=== PATIENT | male | born 1960 | race Caucasian/White ===

== ENCOUNTER 2021-06-23 20:41 | Inpatient (IN) | payer OTHER, SELFPAY ==
[2021-06-23 20:50] VITALS: BP 128/82; PULSE 65; RESP 18; TEMP 36.6; O2SAT 95; BMI 39.6
[2021-06-24 04:57] LABS: Hematocrit 43.3 % (40-54); Hemoglobin 13.9 g/dL (13.0-16.5); Mean Corp Hgb Conc 32.1 g/dL (32-36); Mean Corpuscular Hgb 28.8 pg (27.0-32.0); Mean Corpuscular Volume 89.8 fL (80-94); Mean Platelet Vol. 10.5 fl (6.2-12.0); POSITIVE COUNT YES; Platelet Count 160 K/mm3 (150-450); RBC Distribution Width SD 45.1 fl (35.1-43.9); Red Blood Count 4.82 M/mm3 (4.6-6.2); White Blood Count 55.6 K/mm3 (4.4-11.0)
[2021-06-24] MEDS: Levothyroxine 100 MCG Tablet PO (04:59)
[2021-06-24 05:08] LABS: Scan Indicated on CBC? Y/N YES- FLAGS NOTED
[2021-06-24 05:28] LABS: ALB/GLOB Ratio 0.9 RATIO (0.9-2.4); AST(SGOT) 25 U/L (15-37); Alanine Aminotransfer ALT/SGPT 59 U/L (16-61); Albumin, Serum 3.3 g/dL (3.2-5.0); Alkaline Phosphatase 82 U/L (45-117); Anion Gap 6 (5-15); BUN 16 mg/dL (7-18); BUN/Creat Ratio 13.4 RATIO (10-20); Calcium,Total 8.8 mg/dL (8.5-10.1); Chloride 105 mmol/L (98-107); Creatinine, Serum 1.19 mg/dL (0.70-1.30); EST Glomerular Filtration Rate 66 mL/min (>60); Est Glom Filt Rate - Afr Amer 80 mL/min (>60); Estimated Creatinine Clearance 69.01 ml/min; Globulin 3.5 g/dL (2.2-4.2); Glucose 103 mg/dL (74-106); Magnesium 2.4 mg/dL (1.6-2.6); Potassium 4.5 mmol/L (3.5-5.1); Protein, Total 6.8 g/dL (6.4-8.2); Sodium Level 139 mmol/L (136-145)
[2021-06-24 06:00] LABS: Phosphorus 4.6 mg/dL (2.5-4.9)
[2021-06-24 07:10] LABS: Differential Comment SCANNED
[2021-06-24 07:17] VITALS: BP 125/83; PULSE 66; RESP 20; TEMP 36.2; O2SAT 97
[2021-06-24] MEDS: amLODIPine 5 MG Tablet PO (08:31)
[2021-06-24] MEDS: Allopurinol 300 MG Tablet PO (08:31)
[2021-06-24] MEDS: Carvedilol 12.5 MG Tablet PO ×2 (08:31→21:46)
[2021-06-24] MEDS: Pantoprazole Sodium 20 MG Tablet PO (08:31)
[2021-06-24] MEDS: Furosemide 20 MG Tablet PO ×2 (08:31→21:46)
[2021-06-24] MEDS: Potassium Chloride Oral Tablet 10 MEQ PO ×2 (08:31→21:46)
[2021-06-24] MEDS: Spironolactone 25 MG Tablet 12.5 MG PO (08:32)
--- NOTE | 2021-06-24 12:19 | HP.PCM_ITS ---
HPI - General General Date of Admission: 06/23/21 HPI Narrative GEETA ORTIZ, is a 61 YO M with a PMH of morbid obesity, CLL, MELY (had surgery to correct), GERD, HTN, HLD, low HDL at 30, hypothyroidism, glucose intolerance, chronic back pain, tobacco dependence (used to smoke cigarettes and now uses snuff), elevated left ventricular end-diastolic pressure, and CAD who presented to an OSH ED on 06/20/21 with a hx of Left side weakness and slurred speech that started on 06/18/21. CTH showed no acute abnormalities. He was transferred to [facility] for additional W/U. NIHSS at arrival to [facility] was 4 for Left side weakness and dysarthia. CTA of the head and neck showed no large vessel occlusion, stenosis or aneurysm. MRI at [facility] showed an acute ischemic CVA in the R ester. He was not a candidate for intervention because he was outside the window. He was seen by PT/OT/ST and transfer to an acute rehab unit was recommended at discharge. Significant lab included a HGBA1C of 6.1, LDL of 52 and HDL of 20. WBC is > 50,000 but he has known CLL. One of the consults done at [facility] states he has a hx of AF years ago. Not on anticoagulation. Not known if this is a current diagnosis. Transthoracic echocardiogram at [facility] showed a 60 to 65% ejection fraction with no wall motion abnormalities, normal diastolic function and no PFO. There was no significant valvular dysfunction. While at [facility] he developed L hand pain and Xrays showed a FB. This likely has been there for years and I am skeptical that this is the cause of the pain. [facility]LY [facility] Medical History Broken back CAD (coronary artery disease) Chronic back pain greater than 3 months duration Chronic lymphocytic leukemia GERD (gastroesophageal reflux disease) HTN (hypertension) Hyperlipemia Hypothyroidism Sleep apnea Tobacco dependence due to chewing tobacco Vertebral compression fracture Home Medications albuterol sulfate [ProAir HFA] 108 mcg INHALATION Q4H PRN PRN 06/23/21 [History Last Taken Unknown] allopurinol 300 mg PO DAILY 06/23/21 [History Last Taken Unknown] amlodipine 5 mg PO DAILY 06/23/21 [History Last Taken Unknown] aspirin 81 mg PO DAILY 06/23/21 [History Last Taken Unknown] atorvastatin 40 mg PO QHS 06/23/21 [History Last Taken Unknown] carvedilol 12.5 mg PO BID 06/23/21 [History Last Taken Unknown] furosemide 20 mg PO BID 06/23/21 [History Last Taken Unknown] levothyroxine 100 mcg PO DAILY 06/23/21 [History Last Taken Unknown] naproxen sodium 375 mg PO/SL BID 06/23/21 [History Last Taken Unknown] nitroglycerin 0.4 mg SUBLINGUAL PRN PRN 06/23/21 [History Last Taken Unknown] omeprazole 20 mg PO DAILY 06/23/21 [History Last Taken Unknown] potassium chloride [Klor-Con M20] 10 meq PO BID 06/23/21 [History Last Taken Unknown] spironolactone 12.5 mg PO DAILY 06/23/21 [History Last Taken Unknown] Allergy/AdvReac Type Severity Reaction Status Date / Time No Known Allergies Allergy Verified 06/23/21 22:36 Family History Father CAD (coronary artery disease) Diabetes Hypertension Cancer Bone cancer? Son SLE (systemic lupus erythematosus) Family History no significant family his Surgical History H/O left knee surgery History of carpal tunnel release History of tonsillectomy and adenoidectomy Social History number of children: 3 Smoking Status: Former smoker alcohol intake: current details: 2 beers a week ROS Constitutional Constitutional: Reports malaise; Denies anorexia, change in weight, chills, fatigue, fever(s), night sweats or weakness Eyes Eyes: Denies blurry vision, change in vision, eye pain or loss of vision ENT HEENT: Reports dysphagia; Denies abnormal hearing, headache(s), hearing loss, nasal congestion or sore throat Cardiovascular Cardiovascular: Denies chest pain, dyspnea on exertion, edema, lightheadedness, orthopnea, palpitations, paroxysmal nocturnal dyspnea or syncope Respiratory/Chest Respiratory/Chest: Denies cough, dyspnea, shortness of breath at rest, shortness of breath with exertion or wheezing Gastrointestinal Gastrointestinal: Denies abdominal pain, constipation, diarrhea, dyspepsia, hematemesis, hematochezia, nausea or vomiting Genitourinary Genitourinary: Denies dysuria, hematuria, nocturia, urinary frequency, urinary hesitancy, urinary incontinence or urinary urgency Musculoskeletal Musculoskeletal: Reports back pain and stiffness; Denies joint pain, joint sw elling or neck pain Integumentary Integumentary: Denies jaundice, pruritus, rash or wounds Neurologic Neurologic: Reports focal weakness, lack of coordination and weakness; Denies confusion, disequilibrium, dizziness, headache(s), paresthesias, seizures or tremor(s) Psychiatric Psychiatric: Reports other Details: He is chronically tired and he attributes this to the CLL but, he is working 7 days a week, often 12 hours a day. He has CLL for the past 2 years and his has been dealing with cervical cancer, breast CA, surgery, chemo and radiation for the past year. He is affect is very flat. When he was at [facility] he thought he was going to from the stroke and he was okay with that. Denies homicidal or suicidal ideation. Speech is more of a monotone. Admits to not sleeping well. His told him recently he was irritable. ; Denies anxiety, depression, homicidal ideation or suicidal id eation Endocrine Endocrinology: Denies change in body appearance, polydipsia or polyuria Hematologic/Lymphatic Hematologic/Lymphatic: Denies easy bleeding, easy bruising or lymphadenopathy Allergic/Immunologic Allergic/Immunologic: Denies rhinitis, eczemia or asthma Vital Signs Vital Signs Vital Signs: 06/23/21 20:50 06/24/21 07:17 Temperature 98 F 97.2 F L Temperature Source Temporal Temporal Pulse Rate 65 66 Respiratory Rate 18 20 H Blood Pressure 128/82 H 125/83 H Blood Pressure Mean 97 97 Blood Pressure Source Monitor Monitor Blood Pressure Position Semi-Fowlers Sitting Blood Pressure Location Right Arm Left Arm Pulse Ox 95 97 Oxygen Delivery Method Room Air Room Air Weight Weight: 276 lb 0.3 oz Body Mass Index (BMI) 39.6 Indicators for Scoring Admitted with or Primary Diagnosis of CVA/Stroke: Yes Hx of CVA/Stroke: Yes (June 2021) Modified Chester Score MRS Score at time of Evaluation: 4-Moderate/severe disability NIHSS NIHSS 1a. Level of Consciousness: Alert; keenly responsive 1b. LOC Questions: Answers BOTH questions correctly. 1c. LOC Commands: Performs both tasks correctly. 2. Best Gaze: Normal 3. Visual: No visual loss 4. Facial Palsy: Normal symmetrical movements 5a. Left Arm: Drift; arm drifts downward but doesn?t hit the bed 5b. Right Arm: No drift; arm holds 90 (or 45) degrees for full 10 seconds 6a. Left Leg: Drift; leg falls by the end of 5-seconds, but does not hit bed 6b. Right Leg: No drift; leg holds 30-degree position for full 5 seconds 7. Limb Ataxia: Absent 8. Sensory: Normal; no sensory loss 9. Best Language: No aphasia; normal 10. Dysarthria: [id number] dysarthria; 11. Extinction and Inattention: No abnormality Total: 3 Stroke Questions Stroke Team Activated: No (Pt admitted [facility] rehab from [facility] after completed stroke.) Physical Exam Const alert and oriented x3 Constitutional Narrative: He has to stand up periodically to relieve his back pain. General Appearance: cooperative, well kempt and well developed Eyes PERRL, EOMs intact bilaterally, conjunctivae normal and no scleral icterus General Eye: normal appearance of both eyes Neck no carotid bruits Neck Narrative: The neck is short and thick General: trachea midline Chest Chest: symmetrical chest wall rise Resp normal respiratory effort, normal air movement and clear to auscultation bi laterally Effort and Inspection: able to speak in complete sentences Cardio regular rate, regular rhythm, S1 normal heart sound, S2 normal heart sound, no murmurs, no rub and no gallops GI normal to inspection, nondistended, normoactive bowel sounds, soft to palpation and non-tender Extremity no calf tenderness and no pedal edema Skin General Skin Exam: no breakdown Rashes: no rashes Neuro Neuro Narrative: See the NIHSS Psych mental status grossly normal, thought process normal, activity/motor behavior normal, denies homicidal ideation and denies suicidal ideation Psych Narrative: flat affect Appearance: appropriate and well kempt Attitude: calm Activity / Motor Behavior: appropriate eye contact Results Lab / Micro Data Result Diagrams: 06/24/21 04:50 06/24/21 04:50 Labs: Laboratory Results - last 24 hr 06/24/21 04:50: WBC 55.6 H*, RBC 4.82, Hgb 13.9, Hct 43.3, MCV 89.8, MCH 28.8, MCHC 32.1, RDW Std Deviation 45.1 H, RDW Coeff of Romi 14.0, Plt Count 160, MPV 10.5, Differential Comment SCANNED, Diff Path Review January06/24/21 04:50: Sodium 139, Potassium 4.5, Chloride 105, Carbon Dioxide 28.0, Anion Gap 6, BUN 16, Creatinine 1.19, Estim Creat Clear Calc 69.01, Est GFR (MDRD) Af Amer 80, Est GFR (MDRD) Non-Af 66, BUN/Creatinine Ratio 13.4, Glucose 103, Calcium 8.8, Magnesium 2.4, Total Bilirubin 0.90, AST 25, ALT 59, Alkaline Phosphatase 82, Total Protein 6.8, Albumin 3.3, Globulin 3.5, Albumin/Globulin Ratio 0.9 06/24/21 04:50: Phosphorus 4.6 Assessment & Plan Assessment/Plan (1) Physical debility: (2) Ischemic cerebrovascular accident (CVA): (3) Left-sided weakness: (4) Dysarthria: (5) Chronic lymphocytic leukemia: (6) Depression: QUALIFIERS: Active/Remission status: currently active (7) Glucose intolerance (impaired glucose tolerance): (8) Low HDL (under 40): (9) Chronic back pain greater than 3 months duration: (10) Tobacco dependence due to chewing tobacco: (11) Morbid (severe) obesity due to excess calories: (12) Sleep apnea: QUALIFIERS: Sleep apnea type: obstructive Qualified Code(s): G47.33 - Obstructive sleep apnea (adult) (pediatric) (13) Hypothyroidism: QUALIFIERS: Hypothyroidism type: unspecified Qualified Code(s): E03.9 - Hypothyroidism, unspecified (14) Hyperlipemia: QUALIFIERS: Hyperlipidemia type: unspecified Qualified Code(s): E78.5 - Hyperlipidemia, unspecified (15) HTN (hypertension): QUALIFIERS: Hypertension type: primary hypertension Qualified Code(s): I10 - Essential (primary) hypertension (16) CAD (coronary artery disease): PLAN: PLAN PT for gait stability OT for ADL's ST for evaluation Analgesics as needed Bowel protocol Fall precautions Assess for Anxiety/Depression GI prophylaxis with pantoprazole DVT prophylaxis with Lovenox Follow up with neurology, oncology, PCP following DC from IP Rehab Cymbalta 30 mg PO daily in the AM Arthritis compounded cream to the painful areas in the low back TID Charges/Coding Visit Charges Inpatient E&M: 27303 Init Hosp L3
--- NOTE | 2021-06-24 12:26 | REHABEVAL_ITS ---
Admission Information Primary Diagnosis:: Debility secondary to recent ischemic CVA in the ester. Status Changes from Prescreening?: No changes Identified Actual Problem List:: Pain, ALteration in Cmfrt, Depression, Alteration in Sleep, Mobility Impaired, Self Care Deficit, Know.Dfct/Disease Process, BP, Hypertension and Alteration-Leisure Activ. Potential Problem List:: DVT, Bleeding, Infection, UTI, Aspiration, Falls, Skin Integrity and Depression Risk of Complications DVT: LMWH and KAYLEE Hose Bleeding: Monitor Lab Values, Nursing to Teach Precautions for anti-coagulation therapy., Wound, if applicable, to be assessed every shift. and Stroke patients assessed for lethargy or change in status. Infection: Clinical Staff to Monitor for S/S of infection: and S/S of infection include fever, redness, warmth, etc. Urinary Tract Infection: Monitor for frequency, burning, discomfort, or incontinence. and Nursing will obtain urine sample for urinalysis and C&S when ordered. Aspiration: Clinical staff will monitor for coughing, drooling, congestion., Speech will evaluate swallowing and dsyphasia. and Nursing will monitor patient swallowing during meals. Falls: Patient will be evaluated for Fall Precautions and Patient will be placed on Fall Precautions as indicated per protocol. Skin Breakdown: Nursing will assess skin daily using assessment tool. and Nursing will place on Skin Breakdown Precautions as indicated. Pain: Clinical staff will assess patient's pain level per protocol., Medications will be given, if needed, and the pain level reassessed. and Other methods: Massage, distraction, decrease stimulus, etc. used PRN. Plan of Care Patient requires physician specializing in physical medicine and rehab oversight to provide close medical supervision of rehab issues including: Pain Management, Sleep Problems, Bowel and Bladder, Medical and co-morbidity Management, DVT prophylaxis, Rehabilitation Leadership and Coordination of treatment team Patient needs Physical Therapy: For a minimum of 1 hour and At least 5 out of 7 days Patient needs Physical Therapy to improve:: Mobility, Strengthening, Transfers, Stretching, ROM, Endurance, Stairs, Gait and Balance Patient needs Occupational Therapy: For a minimum of 1 hour and At least 5 out of 7 days Patient needs Occupational Therapy to improve ADL's incl.: Eating, Grooming, Bathing, Dressing, Toileting, Toilet transfers, Community Reintegration, Higher functioning activities, Household tasks, Adaptive Equipment, Splinting and Other activities as determined Patient requires speech therapy: For a minimum of 1 hour and At least 5 out of 7 days Patient requires speech therapy for: Swallowing, Cognition, Language Skills and Compensatory Strategies Patient requires 24/7 Rehabilitation Nursing for: Pain Issues, Identifying and preventing risk factors, Monitoring and reporting current medical conditions, Assisting with ambulation, transfer, and all ADL's, Teaching patients about disease process and medications, Family teaching, Providing safe environment, Bowel and Bladder Issues, Skin integrity and Medication Management Patient needs Head Of Acquisitions/ Case Management for: Discharge Planning, Arranging Home Equipment or Services and Family Interventions Patient needs Dietary and Nutrition Services for: Adequate Nutrition, Nutritional Supplements and Nutritional Education Goals Patient will remain: free from falls and or injury at time of discharge. Patient will perform bed mobility at: MOD I level of assist. Patient will complete transfers from bed to chair at: MOD I level of assist. Patient will ambulate: with LRD and - (1,000 feet) Patient will complete upper body dressing at: MOD I level of assist. Patient will complete lower body dressing at: MOD I level of assist. Patient will complete toileting at: MOD I level of assist. Patient will perform bathing at: MOD I level of assist. Patient will complete grooming at: MOD I level of assist. Patient will complete home management skills at: MOD I level of assist. Patient will achieve: 12 stairs (25 steps with 1 handrail) and - (1 curb step) Patient will have pain level of: of 3 or less Patient's skin will: remain intact Patient will receive: adequate nutrition. Discharge Planning Pt Prognosis for Sig. Practical Improv. w/in Reasonable Time: Good Estimated Length of stay (days): 14 Anticipated D/C Destination: Home Was Preadmission Assessment Accurate?: Yes
[2021-06-24 13:51] VITALS: BMI 39.6
[2021-06-24 14:28] LABS: Pathologist Review Reviewed
--- NOTE | 2021-06-24 16:58 | CASEMGMT ---
Social Work Met with patient for initial assessment. Discussed code status. Confirmed full code. Explained MM[employer] insurance with [employer] 06/29 and continued stay is not guaranteed. 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 See 's H&P for further medical information complicating prognosis and rehab potential. Pt reports to not having as crisp speech, needed for his career, or activity tolerance. Discussed patient's mood, cancer dx, 's cancer dx, and chronic pain. Explained Palliative Care - pt agreed to referral. Referral made to [facility]. Will Team Monday. Will continue to follow for discharge planning and support. MIRIAM MagdalenoW
[2021-06-24 18:05] LABS: Bedside Glucose 116 mg/dL (70-110)
[2021-06-24 19:45] VITALS: BP 151/86; PULSE 71; RESP 20; TEMP 36.6; O2SAT 94
[2021-06-24] MEDS: Arthritis Pain Compound 60 CLICK TUBE TOPICAL (21:46)
[2021-06-24] MEDS: Atorvastatin Calcium 40 MG Tablet PO (21:46)
[2021-06-24] MEDS: Aspirin 81 MG TAB.CHEW PO (21:47)
[2021-06-25 03:56] VITALS: BMI 39.6
[2021-06-25] MEDS: Arthritis Pain Compound 60 CLICK TUBE TOPICAL ×2 (06:22→20:55)
[2021-06-25] MEDS: Enoxaparin 40 MG/0.4 ML Syringe SC (06:23)
[2021-06-25] MEDS: Levothyroxine 100 MCG Tablet PO (06:23)
[2021-06-25] MEDS: amLODIPine 5 MG Tablet PO (07:59)
[2021-06-25] MEDS: Allopurinol 300 MG Tablet PO (07:59)
[2021-06-25] MEDS: Spironolactone 25 MG Tablet 12.5 MG PO (07:59)
[2021-06-25] MEDS: Potassium Chloride Oral Tablet 10 MEQ PO ×2 (07:59→20:54)
[2021-06-25] MEDS: Furosemide 20 MG Tablet PO ×2 (07:59→20:54)
[2021-06-25] MEDS: Carvedilol 12.5 MG Tablet PO ×3 (07:59→20:55)
[2021-06-25] MEDS: DULoxetine Hcl 30 MG Capsule PO (07:59)
[2021-06-25] MEDS: Pantoprazole Sodium 20 MG Tablet PO (08:00)
[2021-06-25 08:05] VITALS: BP 158/77; PULSE 67; RESP 18; TEMP 36.6; O2SAT 95
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
--- NOTE | 2021-06-25 11:02 | PCM.PN.BLA ---
Progress Note Afebrile VSS-systolic blood pressure is mildly increased at 158/77 today. Last evening it was 151/86. Heart rate is within normal limits. Maintaining appropriate oxygen saturation on RA Oral intake is good Discussed with nursing - no problems that need addressed Reviewed the PT/OT/ST notes Medication list reviewed. He was started on Cymbalta this morning. Gennaro denies chest pain, shortness of breath, lightheadedness, vertigo, nausea, abdominal pain, dysuria. He does not feel he has good balance and he is c/o fatigue. Physical Exam Const alert, oriented x3 and no apparent distress General Appearance: cooperative HEENT normocephalic and head/scalp atraumatic Eyes EOMs intact bilaterally, conjunctivae normal and no scleral icterus Resp normal respiratory effort and clear to auscultation bilaterally Cardio regular rate, regular rhythm and no gallops GI normal to inspection, nondistended, normoactive bowel sounds, soft to palpation and non-tender Extremity no calf tenderness Skin General Skin Exam: no breakdown Rashes: no rashes Assessment & Plan Assessment/Plan (1) Left-sided weakness: (2) Ischemic cerebrovascular accident (CVA): (3) Physical debility: (4) Depression: QUALIFIERS: Active/Remission status: currently active (5) Chronic back pain greater than 3 months duration: (6) Chronic lymphocytic leukemia: PLAN: 1. Continue therapy 2. Continue the Cymbalta 3. If the BP is still > 140 tomorrow will adjust the antihypertensives 4. Will need to follow up with heme/onc after DC. The WBC count is only 55,000 so I do not think the CVA was due to hyperviscosity. He is not anemic and the PLT's are 160,000. Visit Charges Inpatient E&M: 64882 Subs Hosp L2
[2021-06-25 16:47] VITALS: BMI 39.6
--- NOTE | 2021-06-25 16:47 | NURSING ---
pts daughter aware of Team and visiting hours
[2021-06-25 19:56] VITALS: BP 140/90; PULSE 65; RESP 12; TEMP 36.6; O2SAT 94
[2021-06-25] MEDS: Atorvastatin Calcium 40 MG Tablet PO (20:54)
[2021-06-25] MEDS: Aspirin 81 MG TAB.CHEW PO (20:55)
[2021-06-25] MEDS: traZODone 100 MG Tablet PO (20:55)
[2021-06-26 02:29] VITALS: BP 114/75; PULSE 63; RESP 12; TEMP 36.5; O2SAT 93
[2021-06-26 02:36] LABS: Bedside Glucose 96 mg/dL (70-110)
[2021-06-26 05:00] VITALS: BMI 39.6
[2021-06-26] MEDS: Enoxaparin 40 MG/0.4 ML Syringe SC (05:27)
[2021-06-26] MEDS: Arthritis Pain Compound 60 CLICK TUBE TOPICAL ×3 (05:27→22:02)
[2021-06-26] MEDS: Levothyroxine 100 MCG Tablet PO (06:41)
[2021-06-26 07:41] VITALS: BP 120/66; PULSE 61; RESP 16; TEMP 36.7; O2SAT 93
[2021-06-26] MEDS: Allopurinol 300 MG Tablet PO (10:54)
[2021-06-26] MEDS: Furosemide 20 MG Tablet PO ×2 (10:54→22:00)
[2021-06-26] MEDS: Senna/Docusate Sodium 1 Tablet 2 TABLET PO (10:54)
[2021-06-26] MEDS: Carvedilol 12.5 MG Tablet PO ×2 (10:54→21:59)
[2021-06-26] MEDS: Potassium Chloride Oral Tablet 10 MEQ PO ×2 (10:54→22:01)
[2021-06-26] MEDS: Spironolactone 25 MG Tablet 12.5 MG PO (10:56)
[2021-06-26] MEDS: DULoxetine Hcl 30 MG Capsule PO (10:58)
[2021-06-26] MEDS: amLODIPine 5 MG Tablet PO (10:59)
[2021-06-26] MEDS: Pantoprazole Sodium 20 MG Tablet PO (10:59)
[2021-06-26 17:00] VITALS: BMI 39.6
[2021-06-26 21:39] VITALS: BP 143/87; PULSE 73; RESP 18; TEMP 36.5; O2SAT 94
[2021-06-26 21:48] VITALS: RESP 18
[2021-06-26] MEDS: Aspirin 81 MG TAB.CHEW PO (21:59)
[2021-06-26] MEDS: traZODone 100 MG Tablet PO (21:59)
[2021-06-26] MEDS: Atorvastatin Calcium 40 MG Tablet PO (22:00)
[2021-06-27 01:52] VITALS: BMI 39.6
[2021-06-27] MEDS: Levothyroxine 100 MCG Tablet PO (06:27)
[2021-06-27] MEDS: Enoxaparin 40 MG/0.4 ML Syringe SC (06:27)
[2021-06-27] MEDS: Arthritis Pain Compound 60 CLICK TUBE TOPICAL ×3 (06:28→21:03)
[2021-06-27 07:22] VITALS: BP 116/59; PULSE 62; RESP 18; TEMP 36.6; O2SAT 94
[2021-06-27] MEDS: DULoxetine Hcl 30 MG Capsule PO (11:10)
[2021-06-27] MEDS: Carvedilol 12.5 MG Tablet PO (11:10)
[2021-06-27] MEDS: Furosemide 20 MG Tablet PO ×2 (11:10→21:03)
[2021-06-27] MEDS: Pantoprazole Sodium 20 MG Tablet PO (11:10)
[2021-06-27] MEDS: Potassium Chloride Oral Tablet 10 MEQ PO ×2 (11:10→21:03)
[2021-06-27] MEDS: Allopurinol 300 MG Tablet PO (11:10)
[2021-06-27] MEDS: Spironolactone 25 MG Tablet 12.5 MG PO (11:10)
[2021-06-27] MEDS: amLODIPine 5 MG Tablet PO (11:23)
--- NOTE | 2021-06-27 13:39 | PN_ITS ---
Progress Note Afebrile VSS-blood pressure is 116/59 this morning. Heart rate is within normal limits. Maintaining appropriate oxygen saturation on RA Oral intake is adequate Discussed with nursing - no problems that need addressed Reviewed the PT/OT/ST notes Medication list reviewed. He tells me that he slept well last night and he was even able to take a nap in the recliner today. He also tells me that his back pain is somewhat better. He did over an hour on the Nustep last night..........he is constantly pushing himself to do more. His Opal was in the room and today and we had an hour long discussion about the sx of depression and how keeping yourself constantly busy is an escape so that you do not have to think about having CLL and how long you have to live. 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 He is chronically tired and blames it on the CLL but, I pointed out that I believe in part that is true BUT, he is also physiologically tired from ov erdoing. His has cancer also and I think she needs more support from him and she wants to be there for him but, he is rarely available. He is c/o night sweats Physical Exam Const alert, oriented x3 and no apparent distress Resp normal respiratory effort, normal air movement and clear to auscultation bi laterally Cardio regular rate, regular rhythm and no gallops GI normal to inspection, nondistended, normoactive bowel sounds, soft to palpation and non-tender Extremity no calf tenderness Assessment & Plan Assessment/Plan (1) Left-sided weakness: (2) Dysarthria: (3) Ischemic cerebrovascular accident (CVA): (4) Physical debility: (5) Depression: QUALIFIERS: Active/Remission status: currently active PLAN: 1. Add Tramadol 50 mg at HS and TID PRN to the current regimen. 2. Recommended he get counselling to help him learn to set boundaries and deal with the stress of having chronic illness 3. continue the Cymbalta 4. I spent 45 minutes with Gennaro and his today. the majority of the time today was spent counselling. 5. I stressed the importance of balancing exercise and rest. He is sleeping better now with the addition of Trazodone to the night time meds. Visit Charges Inpatient E&M: 62078 Subs Hosp L2
[2021-06-27 17:00] VITALS: BMI 39.6
[2021-06-27] MEDS: Aspirin 81 MG TAB.CHEW PO (21:03)
[2021-06-27] MEDS: Atorvastatin Calcium 40 MG Tablet PO (21:03)
[2021-06-27] MEDS: traZODone 100 MG Tablet PO (21:03)
[2021-06-27 21:12] VITALS: BP 144/83; PULSE 59; PULSE 69; RESP 18; TEMP 36.6; O2SAT 95
[2021-06-27] MEDS: traMADol 50 MG Tablet PO (21:20)
--- NOTE | 2021-06-28 02:29 | NURSING ---
Reviewed and agree with MARINE SERVICE STATION ATTENDANT documentation and assessment charting.
[2021-06-28 02:55] VITALS: BMI 39.6
[2021-06-28] MEDS: Enoxaparin 40 MG/0.4 ML Syringe SC (05:08)
[2021-06-28] MEDS: Levothyroxine 100 MCG Tablet PO (05:08)
[2021-06-28] MEDS: Arthritis Pain Compound 60 CLICK TUBE TOPICAL ×3 (05:08→21:42)
[2021-06-28 07:25] VITALS: BP 134/79; PULSE 62; RESP 18; TEMP 36.6; O2SAT 93
[2021-06-28] MEDS: amLODIPine 5 MG Tablet PO (08:03)
[2021-06-28] MEDS: Allopurinol 300 MG Tablet PO (08:03)
[2021-06-28] MEDS: Pantoprazole Sodium 20 MG Tablet PO (08:03)
[2021-06-28] MEDS: Furosemide 20 MG Tablet PO ×2 (08:03→21:43)
[2021-06-28] MEDS: Carvedilol 12.5 MG Tablet PO ×2 (08:04→21:43)
[2021-06-28] MEDS: DULoxetine Hcl 30 MG Capsule PO (08:04)
[2021-06-28] MEDS: Spironolactone 25 MG Tablet 12.5 MG PO (08:04)
[2021-06-28] MEDS: Potassium Chloride Oral Tablet 10 MEQ PO ×2 (08:04→21:43)
--- NOTE | 2021-06-28 13:36 | CASEMGMT ---
Social Work IDT met with patient and for Team meeting. Discussed patient's progress in therapy and nursing. Explained MMO CM insurance with [employer] 06/29 and continued stay is not guaranteed. IDT expressed and pt/ agrees - although pt is progressing well, SBA and walking longer than household distances, pt is not at PLOF. Pt was working 12 hrs/day, 7 days/wk, needs both hands using fine motor skills for job - currently pt lacks those skills and coordination. Pt was walking longer than current distances at work and in the community prior without an assistive device. Pt is using FWW, has issues with balance and fatigues quickly. Pt still working through pain, depressive symptoms, and trouble sleeping - all things is actively treating and would be optimal to continue to treat and stabilize in this setting prior to DC. has cancer and is not strong enough to assist pt at home. Pt does not feel ready to DC, along with IDT and requesting/recommending additional days for continued extensive therapy for optimal recovery to PLOF and returning to work. SW to continue to follow to assist with DC planning. Pt would continue with outpatient therapy at [facility]. Rut Coulter, MIRIAM QUANW
--- NOTE | 2021-06-28 13:59 | PCM.PN.BLA ---
Progress Note Gennaro was seen on team rounds today. His Opal was present in the room for rounds. Afebrile VSS - BP's have come down since Monday and range from 116/59 - 144/83 Maintaining appropriate oxygen saturation on RA Oral intake is good Discussed with nursing - no problems that need addressed Reviewed the PT/OT/ST notes Medication list reviewed. today he is c/o night sweats and pain in the Left thumb. He denies CP, SOB, lightheadedness, N/V/ABD pain, cough, dysuria. He tells me that his back pain is better than it was. He is also sleeping much better. Physical Exam Const alert and oriented x3 General Appearance: cooperative Resp clear to auscultation bilaterally Cardio regular rate and regular rhythm GI normal to inspection, nondistended, normoactive bowel sounds, soft to palpation and non-tender Extremity no calf tenderness Extremity Narrative: The Left thumb at the base is painful to palpation. + Kyrie test. There is no erythema and no increased warmth to touch. Skin General Skin Exam: no breakdown Rashes: no rashes Neuro Neuro Narrative: Catches his left foot when ambulating. He tells me he feels more comfortable and safe walking with the FWW than the cane. He feels that his balance is off. Coordination in the left hand is poor and there is still weakness but, he is able to lift the left arm enough now to touch his ear. Speech is intelligible and projection has improved. Assessment & Plan Assessment/Plan (1) De Quervain's tenosynovitis, left: (2) Dysarthria: (3) Depression: QUALIFIERS: Active/Remission status: currently active (4) Left-sided weakness: (5) Ischemic cerebrovascular accident (CVA): (6) Physical debility: PLAN: 1. Will apply the arthritis compounded cream to the Left wrist/thumb TID. It has been effective in helping with the chronic back pain. 2. Increase the Cymbalta to 60 mg and continue to monitor the BP 3. Continue therapy - he is not even close to his baseline function. He was ambulating without an AD prior to the stroke and his job requires him to have dexterity with the left hand. He has not even progressed to being safe with a cane yet. 4. Recheck the CBC/DIFF and a BMP on Monday 5. D/W the PT and will recommend a spica splint to the Left wrist.......he does not have to wear it when using the FWW if it makes it difficult to grab the walker 6. Consult Behavioral Health for depression - I notified Isael Soto from and he will see him Gennaro does not feel that in his current condition he will be able to effectively do his job at the [employer]. 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 I feel that if he is going to be able to return to his job he needs additional intensive therapy. Visit Charges Inpatient E&M: 40282 Subs Hosp L2
--- NOTE | 2021-06-28 14:51 | CASEMGMT ---
Social Work Spoke with Dr. Cheney about request for consult for Behavioral Health. spoke with Isael at and will visit pt this week. Order entered, per request. MIRIAM MagdalenoW
[2021-06-28 16:50] VITALS: BMI 39.6
[2021-06-28 19:25] VITALS: BP 135/91; PULSE 71; RESP 16; TEMP 36.7; O2SAT 96
[2021-06-28 20:23] VITALS: BMI 39.6
[2021-06-28 20:25] VITALS: PULSE 63; RESP 16; O2SAT 97
[2021-06-28] MEDS: traZODone 100 MG Tablet PO (21:40)
[2021-06-28] MEDS: Atorvastatin Calcium 40 MG Tablet PO (21:42)
[2021-06-28] MEDS: traMADol 50 MG Tablet PO (21:42)
[2021-06-28] MEDS: Senna/Docusate Sodium 1 Tablet 2 TABLET PO (21:42)
[2021-06-28] MEDS: Aspirin 81 MG TAB.CHEW PO (21:43)
[2021-06-29] MEDS: Enoxaparin 40 MG/0.4 ML Syringe SC (06:31)
[2021-06-29] MEDS: Arthritis Pain Compound 60 CLICK TUBE TOPICAL ×3 (06:31→20:21)
[2021-06-29] MEDS: Levothyroxine 100 MCG Tablet PO (06:31)
[2021-06-29] MEDS: DULoxetine Hcl 30 MG Capsule PO (08:06)
[2021-06-29] MEDS: Allopurinol 300 MG Tablet PO (08:06)
[2021-06-29] MEDS: Spironolactone 25 MG Tablet 12.5 MG PO (08:06)
[2021-06-29] MEDS: Senna/Docusate Sodium 1 Tablet 2 TABLET PO ×2 (08:06→20:20)
[2021-06-29] MEDS: Pantoprazole Sodium 20 MG Tablet PO (08:06)
[2021-06-29] MEDS: Furosemide 20 MG Tablet PO ×2 (08:06→20:21)
[2021-06-29] MEDS: amLODIPine 5 MG Tablet PO (08:06)
[2021-06-29] MEDS: Carvedilol 12.5 MG Tablet PO ×2 (08:06→20:20)
[2021-06-29] MEDS: Potassium Chloride Oral Tablet 10 MEQ PO ×2 (08:06→20:20)
[2021-06-29 08:48] VITALS: BP 133/78; PULSE 62; RESP 16; TEMP 36.4; O2SAT 95
--- NOTE | 2021-06-29 15:38 | CM.UR ---
Social Work Pt approved by insurance through 07/05/21. SW spoke w/pt, let him know this. Pt is hopeful he will be able to go home by then, he does not have any interest in going to SNF at discharge. He states he has an old farm home that would be difficult but also has a handicapped accessible mother in law suite and he can stay there if needed. SW will continue to follow for d/c needs. IMMANUEL Duncan
[2021-06-29 16:07] VITALS: BMI 39.6
[2021-06-29 19:07] VITALS: BP 131/82; PULSE 72; RESP 18; TEMP 36.8; O2SAT 95
[2021-06-29] MEDS: traMADol 50 MG Tablet PO (20:19)
[2021-06-29] MEDS: Atorvastatin Calcium 40 MG Tablet PO (20:20)
[2021-06-29] MEDS: Aspirin 81 MG TAB.CHEW PO (20:20)
[2021-06-29] MEDS: traZODone 100 MG Tablet PO (20:20)
[2021-06-29 20:22] VITALS: BMI 39.6
[2021-06-29 20:23] VITALS: PULSE 66; RESP 16; O2SAT 96
[2021-06-30] MEDS: Enoxaparin 40 MG/0.4 ML Syringe SC (05:41)
[2021-06-30] MEDS: Levothyroxine 100 MCG Tablet PO (05:41)
[2021-06-30] MEDS: Arthritis Pain Compound 60 CLICK TUBE TOPICAL ×3 (05:41→20:23)
[2021-06-30 06:08] LABS: Absolute Lymphocyte Count 53.28 X10^3/uL (0.83-4.51); Absolute Neutrophil Count 4.1 X10^3/uL (2.0-7.7); Basophil# 0.25 X10^3/uL; Basophil% 0.4 % (0-1); Eosinophil# 0.52 X10^3/uL; Eosinophils% 0.9 % (0-5); Hematocrit 44.6 % (40-54); Hemoglobin 14.2 g/dL (13.0-16.5); Lymphocyte # 53.28 X10^3/ul (0.83-4.51); Lymphocyte % 88.9 % (19-41); Mean Corp Hgb Conc 31.8 g/dL (32-36); Mean Corpuscular Hgb 28.5 pg (27.0-32.0); Mean Corpuscular Volume 89.4 fL (80-94); Mean Platelet Vol. 11.2 fl (6.2-12.0); Monocyte# 1.63 X10^3/uL; Monocyte% 2.7 % (0-10); NRBC Flagged by Analyzer 0 % (0-5); Neutrophil % 6.9 % (47-70); POSITIVE COUNT YES; POSITIVE DIFFERENTIAL YES; POSITIVE MORPHOLOGY YES; Platelet Count 163 K/mm3 (150-450); RBC Distribution Width SD 45.2 fl (35.1-43.9); Red Blood Count 4.99 M/mm3 (4.6-6.2)
[2021-06-30 06:37] LABS: Anion Gap 6 (5-15); BUN 18 mg/dL (7-18); BUN/Creat Ratio 14.9 RATIO (10-20); Calcium,Total 9.1 mg/dL (8.5-10.1); Chloride 105 mmol/L (98-107); Creatinine, Serum 1.21 mg/dL (0.70-1.30); EST Glomerular Filtration Rate 65 mL/min (>60); Est Glom Filt Rate - Afr Amer 79 mL/min (>60); Estimated Creatinine Clearance 67.87 ml/min; Glucose 101 mg/dL (74-106); Potassium 4.4 mmol/L (3.5-5.1); Sodium Level 136 mmol/L (136-145); Uric Acid 5.3 mg/dL (3.5-7.2)
[2021-06-30 06:53] LABS: Differential Indicated SCAN CRITERIA MET; White Blood Count 59.9 K/mm3 (4.4-11.0)
[2021-06-30 06:56] LABS: Differential Comment SCANNED
[2021-06-30 07:30] VITALS: BP 135/77; PULSE 95; RESP 16; TEMP 36.5; O2SAT 95
[2021-06-30] MEDS: Spironolactone 25 MG Tablet 12.5 MG PO (07:53)
[2021-06-30] MEDS: Furosemide 20 MG Tablet PO ×2 (07:54→20:24)
[2021-06-30] MEDS: Carvedilol 12.5 MG Tablet PO ×2 (07:54→20:24)
[2021-06-30] MEDS: amLODIPine 5 MG Tablet PO (07:54)
[2021-06-30] MEDS: Pantoprazole Sodium 20 MG Tablet PO (07:54)
[2021-06-30] MEDS: Potassium Chloride Oral Tablet 10 MEQ PO ×2 (07:54→20:24)
[2021-06-30] MEDS: DULoxetine Hcl 30 MG Capsule PO (07:54)
[2021-06-30] MEDS: Allopurinol 300 MG Tablet PO (07:54)
--- NOTE | 2021-06-30 11:03 | PCM.PN.BLA ---
Progress Note Afebrile VSS-the blood pressure is well controlled and within goal. Maintaining appropriate oxygen saturation on RA Oral intake is good Discussed with nursing - no problems that need addressed Reviewed the PT/OT notes - He was discharged from on 06/28. Medication list reviewed. He has not taken any Tramadol PRN for pain and he has also not taken any Naprosyn or any Tylenol. He has had no adverse reactions to Cymbalta. All lab was personally reviewed. The white blood cell count is 59,900 with 89% lymphocytes and 6.9% neutrophils. BMP is stable and unremarkable. He denies chest pain, shortness of breath, palpitations, lightheadedness, nausea/vomiting/abdominal pain, dysuria. Physical Exam Const alert, oriented x3 and no apparent distress Constitutional Narrative: Flat affect Eyes EOMs intact bilaterally, conjunctivae normal and no scleral icterus Resp normal respiratory effort, normal air movement, no use of accessory muscles and clear to auscultation bilaterally Effort and Inspection: able to speak in complete sentences Cardio regular rate, regular rhythm, no murmurs, no rub and no gallops GI normal to inspection, nondistended, normoactive bowel sounds, soft to palpation, non-tender and non-distended Back/Spine Lumbar Spine / Lower Back: paraspinal muscle tenderness, paraspinal muscle spasm and straight leg raise negative bilaterally; Negative for mass present Extremity no calf tenderness and no pedal edema Skin Skin Narrative: He has a few red raised lesions in a semicircle over the left roman catholic which he states are becoming painful. He has had multiple skin cancers removed in the past and plans on following up with a furnace combustion tester. Neuro Neuro Narrative: Mild dysarthria and slow speech. Persistent left-sided weakness with poor fine motor coordination of the left hand. Psych mental status grossly normal, thought process normal and cooperative Appearance: grossly normal, appropriate and well kempt Attitude: calm Mood & Affect: flat affect Assessment & Plan Assessment/Plan (1) Ischemic cerebrovascular accident (CVA): (2) Left-sided weakness: (3) Depression: QUALIFIERS: Active/Remission status: currently active (4) De Quervain's tenosynovitis, left: (5) Chronic back pain greater than 3 months duration: (6) Chronic lymphocytic leukemia: PLAN: 1. Have evaluate while he is in rehab. 2. Increase the Cymbalta to 60 mg. 3. Discuss with oncology the possible contribution of hyperviscosity due to CLL as a risk factor for stroke 4. He is sleeping better with the addition of the Trazodone to the drug regimen 5. Continue therapy Visit Charges Inpatient E&M: 54320 Subs Hosp L2
--- NOTE | 2021-06-30 12:44 | NURSING ---
Several attempts made to contact Dr No office to cancel pt's appointment for 07/01
[2021-06-30] MEDS: Meloxicam 7.5 MG Tablet PO (14:05)
[2021-06-30 14:22] VITALS: BMI 39.6
[2021-06-30 19:49] VITALS: BP 142/88; PULSE 70; RESP 18; TEMP 36.3; O2SAT 94
[2021-06-30] MEDS: Aspirin 81 MG TAB.CHEW PO (20:23)
[2021-06-30] MEDS: traZODone 100 MG Tablet PO (20:23)
[2021-06-30] MEDS: Atorvastatin Calcium 40 MG Tablet PO (20:24)
[2021-06-30] MEDS: traMADol 50 MG Tablet PO (20:28)
[2021-07-01 00:59] VITALS: BMI 39.6
[2021-07-01] MEDS: Enoxaparin 40 MG/0.4 ML Syringe SC (06:34)
[2021-07-01] MEDS: Arthritis Pain Compound 60 CLICK TUBE TOPICAL ×3 (06:34→21:42)
[2021-07-01] MEDS: Levothyroxine 100 MCG Tablet PO (06:35)
[2021-07-01] MEDS: Pantoprazole Sodium 20 MG Tablet PO (08:22)
[2021-07-01] MEDS: amLODIPine 5 MG Tablet PO (08:22)
[2021-07-01] MEDS: Carvedilol 12.5 MG Tablet PO ×2 (08:22→21:42)
[2021-07-01] MEDS: Spironolactone 25 MG Tablet 12.5 MG PO (08:23)
[2021-07-01] MEDS: DULoxetine Hcl 60 MG Capsule PO (08:24)
[2021-07-01] MEDS: Potassium Chloride Oral Tablet 10 MEQ PO ×2 (08:24→21:42)
[2021-07-01] MEDS: Meloxicam 7.5 MG Tablet PO (08:25)
[2021-07-01] MEDS: Furosemide 20 MG Tablet PO ×2 (08:25→21:42)
[2021-07-01] MEDS: Allopurinol 300 MG Tablet PO (08:26)
[2021-07-01 08:32] VITALS: BP 113/79; PULSE 75; RESP 18; TEMP 37; O2SAT 93
--- NOTE | 2021-07-01 14:35 | BH.NOTE ---
BH: Inpatient Note - Notes Behavioral Health Inpatient Note: 07/01/21 14:35 Referral to [facility] from Dr. Cheney regarding depressive symptoms. Met with pt alone in his room. Cooperative and pleasant. States I never thought I was depressed but maybe I am. He states I guess I haven't done anything fun in a really long time. 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 For the past several months he would leave work on Monday night, drive to [place], and then work on his house there for the whole weekend. Could not identify any self-care in the past several years. Recently had a stroke and was ok with the possibility of dying. Admits to survival ambivalence however denies suicidal ideations, plan, or intent. No pleasure in activities. Constantly working has increased stress and could have impacted physical health as well. Increased insight into depression since having discussion with Dr. Cheney. Perspective shift as well. Discussed focusing more on creating experiences and memories rather than completing projects. Desire to focus more on support and self-care rather than tasks and responsibilities. He is open to referral to for counseling and was given the number to [facility] in [place].
[2021-07-01 15:14] VITALS: BMI 39.6
--- NOTE | 2021-07-01 18:00 | NURSING ---
and patient made aware that this nurse left Dr. Sotelo office a message due to no staff answering the phone to call his appt that was for today.
[2021-07-01 19:20] VITALS: BP 156/89; PULSE 75; RESP 18; TEMP 36.7; O2SAT 93
[2021-07-01] MEDS: traMADol 50 MG Tablet PO (21:41)
[2021-07-01] MEDS: Atorvastatin Calcium 40 MG Tablet PO (21:41)
[2021-07-01] MEDS: Aspirin 81 MG TAB.CHEW PO (21:42)
[2021-07-01] MEDS: traZODone 100 MG Tablet PO (21:42)
[2021-07-01 21:43] VITALS: BP 135/86; PULSE 79
[2021-07-02 05:00] VITALS: BMI 39.6
[2021-07-02] MEDS: Arthritis Pain Compound 60 CLICK TUBE TOPICAL ×3 (06:38→21:59)
[2021-07-02] MEDS: Enoxaparin 40 MG/0.4 ML Syringe SC (06:38)
[2021-07-02] MEDS: Levothyroxine 100 MCG Tablet PO (06:38)
[2021-07-02 07:11] VITALS: BP 128/77; PULSE 67; RESP 12; TEMP 36.7; O2SAT 93
[2021-07-02] MEDS: amLODIPine 5 MG Tablet PO (07:43)
[2021-07-02] MEDS: Spironolactone 25 MG Tablet 12.5 MG PO (07:43)
[2021-07-02] MEDS: Meloxicam 7.5 MG Tablet PO (07:43)
[2021-07-02] MEDS: Carvedilol 12.5 MG Tablet PO ×2 (07:44→21:58)
[2021-07-02] MEDS: Allopurinol 300 MG Tablet PO (07:44)
[2021-07-02] MEDS: DULoxetine Hcl 60 MG Capsule PO (07:44)
[2021-07-02] MEDS: Pantoprazole Sodium 20 MG Tablet PO (07:44)
[2021-07-02] MEDS: Furosemide 20 MG Tablet PO ×2 (07:44→21:58)
[2021-07-02] MEDS: Potassium Chloride Oral Tablet 10 MEQ PO ×2 (07:44→21:58)
[2021-07-02 09:32] LABS: Pathologist Review Reviewed
--- NOTE | 2021-07-02 13:36 | CASEMGMT ---
Social Work Spoke with pt to discuss DC plans. Pt would like to set DC as 07/06 as he feels insurance will not approve additional days and needs to coordinate when to take off work. IDT agreeable. Pt would like outpatient therapy at [facility]. Referral made for PT/OT. Pt needs cane and shower chair. Referred to [facility] to see if insurance will cover items. to transport at DC. Plan: DC home with 07/06, [facility] PT/OT MIRIAM MagdalenoW
--- NOTE | 2021-07-02 14:25 | CASEMGMT ---
Social Work Completed advanced directives with pt. Pt named as primary and son, Davey, as secondary. Copies placed in chart. Notified Palliative of DC date. Rut Coulter, PUBLIC HEALTH DENTIST FLOOR FINISHER HELPER
[2021-07-02 15:10] VITALS: BMI 39.6
[2021-07-02 19:27] VITALS: BP 131/84; PULSE 69; RESP 18; TEMP 36.8; O2SAT 96
[2021-07-02] MEDS: traZODone 100 MG Tablet PO (21:56)
[2021-07-02] MEDS: traMADol 50 MG Tablet PO (21:57)
[2021-07-02] MEDS: Atorvastatin Calcium 40 MG Tablet PO (21:58)
[2021-07-02] MEDS: Aspirin 81 MG TAB.CHEW PO (21:58)
[2021-07-02 22:00] VITALS: PULSE 69; RESP 16
[2021-07-02 22:03] VITALS: BMI 39.6
[2021-07-03] MEDS: Levothyroxine 100 MCG Tablet PO (06:21)
[2021-07-03] MEDS: Enoxaparin 40 MG/0.4 ML Syringe SC (06:22)
[2021-07-03] MEDS: Arthritis Pain Compound 60 CLICK TUBE TOPICAL ×3 (06:22→21:05)
[2021-07-03] MEDS: Potassium Chloride Oral Tablet 10 MEQ PO ×2 (08:07→21:04)
[2021-07-03] MEDS: Furosemide 20 MG Tablet PO ×2 (08:07→21:05)
[2021-07-03] MEDS: Pantoprazole Sodium 20 MG Tablet PO (08:08)
[2021-07-03] MEDS: Meloxicam 7.5 MG Tablet PO (08:08)
[2021-07-03] MEDS: Allopurinol 300 MG Tablet PO (08:08)
[2021-07-03] MEDS: amLODIPine 5 MG Tablet PO (08:08)
[2021-07-03] MEDS: Spironolactone 25 MG Tablet 12.5 MG PO (08:09)
[2021-07-03] MEDS: Carvedilol 12.5 MG Tablet PO ×2 (08:09→21:05)
[2021-07-03] MEDS: DULoxetine Hcl 60 MG Capsule PO (08:09)
[2021-07-03 10:00] VITALS: BP 118/82; PULSE 68; RESP 16; TEMP 37.2; O2SAT 93
[2021-07-03 14:46] VITALS: BMI 39.6
[2021-07-03 21:00] VITALS: BP 142/86; PULSE 83; RESP 14; RESP 18; TEMP 36.3; O2SAT 94; BMI 39.6
[2021-07-03] MEDS: traZODone 100 MG Tablet PO (21:05)
[2021-07-03] MEDS: Atorvastatin Calcium 40 MG Tablet PO (21:05)
[2021-07-03] MEDS: Aspirin 81 MG TAB.CHEW PO (21:05)
[2021-07-03] MEDS: traMADol 50 MG Tablet PO (21:07)
--- NOTE | 2021-07-04 00:07 | NURSING ---
Reviewed and agree with CLINICAL DIRECTOR assessment.
[2021-07-04] MEDS: Enoxaparin 40 MG/0.4 ML Syringe SC (06:49)
[2021-07-04] MEDS: Levothyroxine 100 MCG Tablet PO (06:49)
[2021-07-04 07:28] VITALS: BP 124/73; PULSE 66; RESP 16; TEMP 36.6; O2SAT 94
[2021-07-04] MEDS: Arthritis Pain Compound 60 CLICK TUBE TOPICAL ×2 (09:03→21:26)
[2021-07-04] MEDS: Potassium Chloride Oral Tablet 10 MEQ PO ×2 (09:03→21:26)
[2021-07-04] MEDS: Furosemide 20 MG Tablet PO ×2 (09:03→21:26)
[2021-07-04] MEDS: Pantoprazole Sodium 20 MG Tablet PO (09:04)
[2021-07-04] MEDS: Spironolactone 25 MG Tablet 12.5 MG PO (09:04)
[2021-07-04] MEDS: amLODIPine 5 MG Tablet PO (09:07)
[2021-07-04] MEDS: DULoxetine Hcl 60 MG Capsule PO (09:07)
[2021-07-04] MEDS: Carvedilol 12.5 MG Tablet PO ×2 (09:07→21:26)
[2021-07-04] MEDS: Meloxicam 7.5 MG Tablet PO (09:07)
[2021-07-04] MEDS: Allopurinol 300 MG Tablet PO (09:08)
[2021-07-04 16:15] VITALS: BMI 39.6
[2021-07-04 21:20] VITALS: BP 123/90; PULSE 72; RESP 18; TEMP 36.4; O2SAT 93; BMI 39.6
[2021-07-04] MEDS: traMADol 50 MG Tablet PO (21:25)
[2021-07-04] MEDS: traZODone 100 MG Tablet PO (21:25)
[2021-07-04] MEDS: Aspirin 81 MG TAB.CHEW PO (21:26)
[2021-07-04] MEDS: Atorvastatin Calcium 40 MG Tablet PO (21:26)
--- NOTE | 2021-07-04 23:48 | NURSING ---
Reviewed OUTDOOR ADVENTURE INSTRUCTOR and agree with OUTDOOR ADVENTURE INSTRUCTOR assessment.
[2021-07-05] MEDS: Levothyroxine 100 MCG Tablet PO (06:35)
[2021-07-05] MEDS: Enoxaparin 40 MG/0.4 ML Syringe SC (06:35)
[2021-07-05 07:30] VITALS: BP 115/77; PULSE 72; RESP 16; TEMP 36.6; O2SAT 93
[2021-07-05] MEDS: Arthritis Pain Compound 60 CLICK TUBE TOPICAL ×3 (08:00→22:06)
[2021-07-05] MEDS: Furosemide 20 MG Tablet PO ×2 (11:01→22:05)
[2021-07-05] MEDS: Carvedilol 12.5 MG Tablet PO ×2 (11:01→22:05)
[2021-07-05] MEDS: Pantoprazole Sodium 20 MG Tablet PO (11:01)
[2021-07-05] MEDS: amLODIPine 5 MG Tablet PO (11:01)
[2021-07-05] MEDS: DULoxetine Hcl 60 MG Capsule PO (11:01)
[2021-07-05] MEDS: Allopurinol 300 MG Tablet PO (11:01)
[2021-07-05] MEDS: Meloxicam 7.5 MG Tablet PO (11:02)
[2021-07-05] MEDS: Potassium Chloride Oral Tablet 10 MEQ PO ×2 (11:02→22:05)
[2021-07-05] MEDS: Spironolactone 25 MG Tablet 12.5 MG PO (11:02)
--- NOTE | 2021-07-05 13:31 | CASEMGMT ---
Addendum entered by Rut Coulter 07/05/21 13:41: Pt stated he would just pay out of pocket for a cane. Original Note: Social Work Followed up with [facility] on DME. [facility] at [facility] stated pt's cane is covered but needs to call his insurance to get his account in order prior to covering cane, but shower chair is not covered. 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 Notified pt. Rut Coulter, MIRIAM QUANW
[2021-07-05 14:48] VITALS: BMI 39.6
--- NOTE | 2021-07-05 18:10 | PCM.PN.BLA ---
Progress Note Afebrile VSS Maintaining appropriate oxygen saturation on RA Oral intake is good Discussed with nursing - no problems that need addressed Reviewed the PT/OT/ST notes Medication list reviewed. Back pain is better. the Pain in the left thumb has improved. Denies CP, shortness of breath, palpitations, lightheadedness, calf pain, dysuria, cough. He continues to have drenching night sweats at night. Physical Exam Const alert, oriented x3 and no apparent distress Resp clear to auscultation bilaterally Cardio regular rate, regular rhythm and no gallops GI normal to inspection, nondistended, normoactive bowel sounds, soft to palpation and non-tender Extremity no calf tenderness Assessment & Plan Assessment/Plan (1) Physical debility: (2) Ischemic cerebrovascular accident (CVA): (3) Left-sided weakness: (4) De Quervain's tenosynovitis, left: (5) Depression: QUALIFIERS: Active/Remission status: currently active (6) Chronic back pain greater than 3 months duration: PLAN: 1. Plan for discharge home tomorrow. 2. Try oxybutynin 10 mg at at bedtime to see if this has any effect on decreasing the night sweats. Visit Charges Inpatient E&M: 84246 Subs Hosp L1
--- NOTE | 2021-07-05 18:12 | DCINST_ITS ---
Discharge Instructions Diet Discharge Diet: Low fat / Low cholesterol and 2000 mg Sodium Diet Activity Discharge Activity: - (use the wheeled walker or the cane when you are ambulating outside of your house to increase stability and prevent falls) May resume sexual activity in: No Restrictions Weight Bearing Status: Full weight bearing Lifting Restrictions: 10 lbs Additional Activity Instructions:: Do the exercises given to you by the therapists every day at least 1 time. Dressing / Incision Call your doctor if you observe: Fever of 101 or Higher, Inability to urinate, Fainting spells and Uncontrolled pain Follow Up Care Please Follow Up With: Davey Sotelo MD Test Results: Test results from this visit will be discussed in further detail at your follow-up appointment, if applicable. Discharge Plan Admission Admit Date/Time: 06/23/21 20:41 Primary Reason for Your Visit: Physical debility due to ischemic CVA Attending Provider: Pratima Cheney Primary Care Provider: Davey Sotelo Consulting Providers: Senia Pina ; Davey Camacho ; Lydia Chavarria ; Amrita Martins ; Olga Erickson ; Alicia Soto ORGANIZATIONAL PSYCHOLOGIST Instructions Patient Instructions: Coronavirus Disease 2019 (COVID-19): Prevention, Depression Affects Your Mind ..., Counseling for Depression, Understanding Smokeless Tobacco, ED Panic Attack, mRNA COVID-19 Vaccine, How COVID-19 Spreads Additional Instructions / Restrictions: 1. You have done well in rehab. You have had time to think and reflect on how you have been living your life for many years and how you are not feeling happy. You are having some feelings instead of trying to run away from your feelings by constantly keeping your self busy so you do not have time to think about how you are feeling. I am glad you realize now that you have been both depressed and anxious. I think the anxiety manifests as panic attacks. I think you would benefit greatly from seeing a psychologist or a licensed independent social welfare research worker. 2. I am thrilled that your back pain is doing better. You are currently taking meloxicam which is an anti-inflammatory, the arthritis compounded cream and Cymbalta (medication that controls anxiety/depression AND helps with chronic pain.) You are currently taking meloxicam 7.5 mg once daily. Take this for 1 month and if you are still having back pain you can try increasing it to 15 mg daily. Always take the meloxicam with some food. 3. Live in the moment! You can not change the past and none of us know what the future will bring. Be happy now and live everyday to it's fullest.........get to know your again. 4. Stay away from sick people. You and Opal are both immunocompromised, even though you have been vaccinated many others have not. You can still get COVID if you are vaccinated but, most people will not or even need to be admitted to the hospital if they contract COVID. People who are immunocompromised do not respond to the vaccine the same and you need to be careful who you associate with. Always wear your mask in public, maintain social distancing while out in public and stay away from those who are not vaccinated, davi if they have cough, sore throat, nausea and vomiting or diarrhea, people who have lost the sense of smell or taste. I am giving you some info about the vaccine that you could sh are with family and friends have not been vaccinated when you tell them you need to stay away from them because they can get you sick and you are at greater risk of getting very ill or even dying if you contract COVID. 5. It has been a pleasure to meet you and Opal. I wish you both good health going forward and a long HAPPY life. This stroke was a wake up call..........change is hard but, you have made a good start. If you have any questions after you leave the hospital please feel free to call me. My office number is [phone] and my cell is [phone]. Discharge Orders/Prescriptions Prescriptions: New Arthritis Pain Compound 3 click topical TID Qty: 0 RF: 0 acetaminophen 500 mg Tablet 1,000 mg PO Q8H PRN PRN (Reason: Pain Score 1-10) Qty: 0 RF: 0 meloxicam 7.5 mg Tablet 7.5 mg PO DAILY Qty: 30 RF: 0 trazodone 100 mg Tablet 100 mg PO 2100 Qty: 30 RF: 0 duloxetine 60 mg Capsule,Delayed Release(Dr/Ec) 60 mg PO DAILY Qty: 30 RF: 0 Continued aspirin 81 mg Tablet,Chewable 81 mg PO DAILY RF: 0 nitroglycerin 0.4 mg Tablet, Sublingual 0.4 mg sublingual PRN PRN (Reason: Chest Pain) RF: 0 atorvastatin 40 mg tablet 40 mg PO QHS Qty: 3 RF: 0 carvedilol 12.5 mg tablet 12.5 mg PO BID Qty: 60 RF: 0 amlodipine 5 mg tablet 5 mg PO DAILY Qty: 30 RF: 0 spironolactone 25 mg tablet 12.5 mg PO DAILY Qty: 15 RF: 0 levothyroxine 100 mcg tablet 100 mcg PO DAILY Qty: 30 RF: 0 potassium chloride [Klor-Con M20] 20 mEq tablet,ER particles/crystals 10 meq PO BID Qty: 30 RF: 0 omeprazole 20 mg capsule,delayed release(DR/EC) 20 mg PO DAILY Qty: 30 RF: 0 allopurinol 300 mg tablet 300 mg PO DAILY Qty: 30 RF: 0 furosemide 20 mg tablet 20 mg PO BID Qty: 60 RF: 0 albuterol sulfate [ProAir HFA] 90 mcg/actuation Hfa Aerosol Inhaler 108 mcg INHALATION Q4H PRN PRN (Reason: SOB) Qty: 1 RF: 0 Discontinued naproxen sodium 375 mg PO/SL BID RF: 0 Referrals / Follow Up: Davey Sotelo MD [Primary Care Provider] - Disposition Disposition (needs filled in before D/C Order can be placed): Home, Self Care
--- NOTE | 2021-07-05 19:17 | NURSING ---
Pt ambulating unit w/cane, MOD-I. Pt tolerating well.
[2021-07-05 19:20] VITALS: BP 157/84; PULSE 58; RESP 16; TEMP 36.7; O2SAT 96
[2021-07-05] MEDS: traZODone 100 MG Tablet PO (21:35)
[2021-07-05 22:00] VITALS: PULSE 71; RESP 16; O2SAT 96
[2021-07-05] MEDS: traMADol 50 MG Tablet PO (22:03)
[2021-07-05] MEDS: Atorvastatin Calcium 40 MG Tablet PO (22:04)
[2021-07-05] MEDS: Oxybutynin 5 MG Tablet PO (22:05)
[2021-07-05] MEDS: Aspirin 81 MG TAB.CHEW PO (22:06)
[2021-07-05 22:19] VITALS: BMI 39.6
[2021-07-06] MEDS: Arthritis Pain Compound 60 CLICK TUBE TOPICAL (06:22)
[2021-07-06] MEDS: Levothyroxine 100 MCG Tablet PO (06:22)
[2021-07-06] MEDS: Enoxaparin 40 MG/0.4 ML Syringe SC (06:22)
[2021-07-06 07:05] VITALS: BP 132/83; PULSE 76; RESP 16; TEMP 36.6; O2SAT 100
[2021-07-06] MEDS: Spironolactone 25 MG Tablet 12.5 MG PO (08:02)
[2021-07-06] MEDS: DULoxetine Hcl 60 MG Capsule PO (08:03)
[2021-07-06] MEDS: amLODIPine 5 MG Tablet PO (08:03)
[2021-07-06] MEDS: Meloxicam 7.5 MG Tablet PO (08:03)
[2021-07-06] MEDS: Allopurinol 300 MG Tablet PO (08:03)
[2021-07-06] MEDS: Pantoprazole Sodium 20 MG Tablet PO (08:03)
[2021-07-06] MEDS: Furosemide 20 MG Tablet PO (08:03)
[2021-07-06] MEDS: Potassium Chloride Oral Tablet 10 MEQ PO (08:03)
[2021-07-06] MEDS: Carvedilol 12.5 MG Tablet PO (08:03)
--- NOTE | 2021-07-06 11:43 | DS.PCM_ITS ---
Providers Date of Admission: 06/23/21 Date of Discharge: 07/06/21 Primary Care Physician: Dr. Davey Sotelo MD Consultations 06/24/21 17:00 Consult: Hospice / Palliative Care Routine Consulting Provider: [facility] Reason for Consult: Palliative - cancer, chronic pain EMERGENT Consult: No MD Notified: Yes Date Notified: 06/24/21 Time Notified: 17:01 Method of Notification: Verbal Reason For Visit: STROKE Diagnosis Discharge Diagnosis (1) Physical debility: Status: Acute Code(s): R53.81 - Other malaise (2) Ischemic cerebrovascular accident (CVA): Status: Acute Code(s): I63.9 - Cerebral infarction, unspecified (3) Left-sided weakness: Status: Acute Code(s): R53.1 - Weakness (4) Dysarthria: Status: Acute Code(s): R47.1 - Dysarthria and anarthria (5) Depression: Status: Acute Code(s): F32.A - Depression, unspecified Qualifiers: Active/Remission status: currently active (6) De Quervain's tenosynovitis, left: Status: Suspected Code(s): M65.4 - Radial styloid tenosynovitis [de Quervain] (7) Chronic back pain greater than 3 months duration: Status: Chronic Code(s): M54.9 - Dorsalgia, unspecified; G89.29 - Other chronic pain (8) Chronic lymphocytic leukemia: Status: Chronic Code(s): C91.10 - Chronic lymphocytic leukemia of B-cell type not having achieved remission (9) Glucose intolerance (impaired glucose tolerance): Status: Acute Code(s): R73.02 - Impaired glucose tolerance (oral) (10) Low HDL (under 40): Status: Acute Code(s): E78.6 - Lipoprotein deficiency (11) Sleep apnea: Status: Acute Code(s): G47.30 - Sleep apnea, unspecified Qualifiers: Sleep apnea type: obstructive Qualified Code(s): G47.33 - Obstructive sleep apnea (adult) (pediatric) (12) Hypothyroidism: Status: Acute Code(s): E03.9 - Hypothyroidism, unspecified Qualifiers: Hypothyroidism type: unspecified Qualified Code(s): E03.9 - Hypothyroidism, unspecified (13) Hyperlipemia: Status: Acute Code(s): E78.5 - Hyperlipidemia, unspecified Qualifiers: Hyperlipidemia type: unspecified Qualified Code(s): E78.5 - Hyperlipidemia, unspecified (14) HTN (hypertension): Status: Chronic Code(s): I10 - Essential (primary) hypertension Qualifiers: Hypertension type: primary hypertension Qualified Code(s): I10 - Essential (primary) hypertension (15) CAD (coronary artery disease): Status: Acute Code(s): I25.10 - Atherosclerotic heart disease of [place] coronary artery without angina pectoris Plan: Discharge home. Follow-up at [facility] for physical therapy and Occupational Therapy. DME required includes a straight cane and a shower chair. Follow-up with PCP in 5-7 days and with neurology. Medications at Discharge Home Medications aspirin 81 mg PO DAILY 06/23/21 nitroglycerin 0.4 mg SUBLINGUAL PRN PRN 06/23/21 Arthritis Pain Compound 3 click TOPICAL TID #0 07/05/21 acetaminophen 1,000 mg PO Q8H PRN PRN #0 tab 07/05/21 albuterol sulfate [ProAir HFA] 108 mcg INHALATION Q4H PRN PRN #1 g 07/05/21 allopurinol 300 mg PO DAILY #30 tab 07/05/21 amlodipine 5 mg PO DAILY #30 tab 07/05/21 atorvastatin 40 mg PO QHS #3 tab 07/05/21 carvedilol 12.5 mg PO BID #60 tab 07/05/21 duloxetine 60 mg PO DAILY #30 cap 07/05/21 furosemide 20 mg PO BID #60 tab 07/05/21 levothyroxine 100 mcg PO DAILY #30 tab 07/05/21 meloxicam 7.5 mg PO DAILY #30 tab 07/05/21 omeprazole 20 mg PO DAILY #30 cap 07/05/21 potassium chloride [Klor-Con M20] 10 meq PO BID #30 tab 07/05/21 spironolactone 12.5 mg PO DAILY #15 tab 07/05/21 trazodone 100 mg PO 2100 #30 tab 07/05/21 Hospital Course Operations None Procedures None Summary of Care Provided Minutes Spent on Discharge: 55 Hospital Course: GEETA ORTIZ, is a 61 YO M with a PMH of morbid obesity, CLL, MELY (had surgery to correct), GERD, HTN, HLD, low HDL at 30, hypothyroidism, glucose intolerance, chronic back pain, tobacco dependence (us ed to smoke cigarettes and now uses snuff), elevated left ventricular end- diastolic pressure, and CAD who presented to an outside hospital ED on 06/20/21 with a hx of left side weakness and slurred speech that started on 06/18/21. CT Head showed no acute abnormalities. He was transferred to [facility] for additional W/U. NIHSS at arrival to [facility] was 4 for Left side weakness and dysarthria. CTA of the head and neck showed no large vessel occlusion, stenosis or aneurysm. MRI at [facility] showed an acute ischemic CVA in the R ester. He was not a candidate for intervention because he was outside the window. He was seen by PT/OT/ST and transfer to an acute rehab unit was recomme nded at discharge. He was admitted to the acute rehab unit at [facility] on 06/23/2021 for 3 hours of therapy daily to restore function/independence at or near his prior level of function. Significant lab at [facility] included a HGBA1C of 6.1, LDL of 52 and HDL of 20. WBC was > 50,000 but he has known CLL. One of the consults done at [facility] stated he has a hx of AF years ago. He was not on anticoagulation. Transthoracic echocardiogram at [facility] showed a 60 to 65% ejection fraction with no wall motion abnormalities, normal diastolic function and no PFO. There was no significant valvular dysfunction. While at [facility] he developed L hand pain and Xrays showed a FB. This likely alamo s been there for years and I am skeptical that this is the cause of the pain. On my exam findings were consistent with de Quervain's tenosynovitis which was treated with ice and a compounded arthritic cream containing Voltaren/baclofen/lidocaine. He is no longer c/o pain. Gennaro has also had chronic back pain for many years and had a hard time being able to sit without pain. He was constantly getting up to stand which helps to relieve the pain. Various modalities were used to treat the pain and these included arthritis compounded cream TID to the low back, Meloxicam and Duloxetine. Tramadol and Tylenol were ordered as needed however he never took either 1 of these medications. He had no radicular symptoms into the legs while in acute rehab. His back pain is much better and he states he is more comfortable than he has been in years. Prior to arriving in rehab he was not taking any medication for pain. It was apparent at admission to rehab that Gennaro was depressed. He also has anxiety and has in the past had panic attacks with chest pain, palpitations, shortness of breath and a feeling that he is going to . He had never been on any medication for anxiety or depression and had never had counseling. We chose Duloxetine to treat the anxiety and depression because it also helps with chronic pain and it tends to decrease appetite. He is trying to lose weight and in fact he lost 5 lbs while in rehab. He has tolerated this medication well with no adverse side effects. He has night sweats but, this has predated starting on the Duloxetine. We tried Oxybutynin for night sweats but, it was only mildly effective and it was discontinued at [place]. Time was seen by the di madi of the behavioral health unit at [facility], Isael Soto, for counseling. Gennaro has gained a lot of insight into how he has been living his life and he now admits he has not been happy for years. Isael gave Gennaro a list of possible station jailer in [facility] that he can follow up with. Gennaro did quite well in rehab. On 07/05/2021 he was able to ambulate 1077 feet on various surfaces with a straight cane and heavy work boots on with no assistance. He is able to do 15 sit to stands in 30 seconds which is up from 8 at admission. On 07/05/2021 he was able to a send/descend 13 steps x3 without resting for a total of 39 steps or 3 flights. He used 1 handrail. He was able to complete all basic self-care independently prior to discharge. Dysarthria has improved significantly and he will not need ST at [place]. He also has better safety awareness at [place]. He is still weak on the Left side and the fine motor coordination in the left hand is not there yet. 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 Moreno was discharged on 07/06/21 to home. He will get OP PT/OT at [facility]. Vital signs on the day of discharge were blood pressure 132/83, pulse 76, temperature 97.8 and his oxygen saturation on room air was 100%. He has lost 5 pounds since admission to rehab and he was counseled by the dietitian and a heart healthy diet and healthy weight loss. A 30-day event monitor was ordered at discharge since he has had a prior history of atrial fibrillation and has obstructive sleep apnea (he he is compliant with CPAP). He will follow-up with his primary care physician, medical office administrator, oncologist and neurology. He will also follow up with Dr. Heriberto Mcnair to have the suspicious lesions on the left faced addressed/removed. Physical Exam Const alert, oriented x3 and no apparent distress Constitutional Narrative: He is ambulating in the halls with a cane and focusing hard on his balance and moving his left foot forward. His nazanin has increased since admission but, his gait is not what it was prior to the stroke. General Appearance: cooperative, well kempt and well developed HEENT normocephalic and head/scalp atraumatic HEENT Narrative: He has had multiple skin cancers removed in the past and there are a few suspicious lesions on the R adventism area......he states these are becoming painful. Eyes PERRL, EOMs intact bilaterally, conjunctivae normal and no scleral icterus Eyes Narrative: No scleral icterus, no conjunctival injection. General Eye: normal appearance of both eyes Neck supple and no carotid bruits General: trachea midline Lymph Lymphatic: no lymphadenopathy noted Chest Chest: symmetrical chest wall rise Resp normal respiratory effort, normal air movement and clear to auscultation bilaterally Resp Narrative: No conversational dyspnea and no tachypnea or dyspnea with exertion. Effort and Inspection: able to speak in complete sentences Cardio regular rate, regular rhythm, S1 normal heart sound, S2 normal heart sound, no murmurs, no rub and no gallops Cardio Narrative: Occasional premature beat. GI normal to inspection, nondistended, normoactive bowel sounds, soft to palpation and non-tender Extremity no calf tenderness and no pedal edema Extremity Narrative: The Left thumb at the base is painful to palpation. + Kyrie test. There is no erythema and no increased warmth to touch. the pain is better after ice, Meloxicam and arthritic cream. Skin General Skin Exam: no breakdown Lesions: lesion noted cluster of red raised lesions on the R adventism Rashes: no rashes Neuro Neuro Narrative: Catches his left foot when ambulating. He tells me he feels more comfortable and safe walking with the FWW than the cane. He feels that his balance is off. Coordination in the left hand is poor and there is still w eakness but, he is able to lift the left arm enough now to touch his ear. Speech is intelligible and projection has improved. Psych mental status grossly normal, thought process normal, activity/motor behavior normal, denies homicidal ideation and denies suicidal ideation Psych Narrative: His affect has improved since being started on duloxetine 2 weeks ago. There is more modulation to his voice and he is making good eye contact. He has not had any panic attacks and he is sleeping well at night with the addition of trazodone to his drug regimen. He has gained some insight into his feelings and realizes he has not been happy in many years. He is agreeable to following up with a licensed independent oncology social worker or psychologist for therapy. Appearance: appropriate and well kempt Attitude: calm Activity / Motor Behavior: appropriate eye contact Weight / BMI Weight Weight: 271 lb 2.697 oz Body Mass Index (BMI) 39.6 ABG / Lab / Microbiology Data Result Diagrams: 06/30/21 05:48 06/30/21 05:48 D/C Instructions Discharge Diet: Low fat / Low cholesterol and 2000 mg Sodium Diet May resume sexual activity in: No Restrictions Weight Bearing Status: Full weight bearing Additional Activity Instructions: Do the exercises given to you by the therapists every day at least 1 time. Call your doctor if you observe: Fever of 101 or Higher, Inability to urinate, Fainting spells and Uncontrolled pain Please Follow Up With: Davey Sotelo MD Meaningful Use Info Meaningful Use Diagnoses (Choose all that apply): Ischemic CVA CVA Therapy Assessed for PT,OT and/or ST?: Yes Ischemic Stroke Antithrombotic order at d/c?: Yes Dx of Atrial fib/flutter?: No Anticoagulant at discharge?: No Reason anticoagulant not ordered: Treatment not Indicated (He has had AF in the past and he was discharged with a RX for a 30 day event monitor to rule out PAF as the etiology of the ischemic CVA.) Statins at discharge?: Yes Primary Dx Acute Ischemic CVA?: Yes IV tPA ordered during stay?: No Reason IV t-PA not ordered: Treatment not Indicated Discharge Plan Admission Admit Date/Time: 06/23/21 20:41 Primary Reason for Your Visit: Physical debility due to ischemic CVA Attending Provider: Pratima Cheney Primary Care Provider: Davey Sotelo Consulting Providers: Senia Pina ; Davey Camacho ; Lydia Chavarria ; Amrita Martins ; Olga Erickson ; Alicia Soto LITIGATION SERVICES MANAGER Instructions Patient Instructions: Coronavirus Disease 2019 (COVID-19): Prevention, Depression Affects Your Mind ..., Counseling for Depression, Understanding Smo keless Tobacco, ED Panic Attack, mRNA COVID-19 Vaccine, How COVID-19 Spreads Additional Instructions / Restrictions: 1. You have done well in rehab. You have had time to think and reflect on how you have been living your life for many years and how you are not feeling happy. You are having some feelings instead of trying to run away from your feelings by constantly keeping your self busy so you do not have time to think about how you are feeling. I am glad you realize now that you have been both depressed and anxious. I think the anxiety manifests as panic attacks. I think you would benefit greatly from seeing a psychologist or a licensed independent oncology social worker. 2. I am thrilled that your back pain is doing better. You are currently taking meloxicam which is an anti-inflammatory, the arthritis compounded cream and Cymbalta (medication that controls anxiety/depression AND helps with chronic pain.) You are currently taking meloxicam 7.5 mg once daily. Take this for 1 month and if you are still having back pain you can try increasing it to 15 mg daily. Always take the meloxicam with some food. 3. Live in the moment! You can not change the past and none of us know what the future will bring. Be happy now and live everyday to it's fullest.........get to know your again. 4. Stay away from sick people. You and Opal are both immunocompromised, even though you have been vaccinated many others have not. You can still get COVID if you are vaccinated but, most people will not or even need to be admitted to the hospital if they contract COVID. People who are immunocompromised do not respond to the vaccine the same and you need to be careful who you associate with. Always wear your mask in public, maintain social distancing while out in public and stay away from those who are not vaccinated, davi if they have cough, sore throat, nausea and vomiting or diarrhea, people who have lost the sense of smell or taste. I am giving you some info about the vaccine that you could share with family and friends have not been vaccinated when you tell them you need to stay away from them because they can get you sick and you are at greater risk of getting very ill or even dying if you contract COVID. 5. It has been a pleasure to meet you and Opal. I wish you both good health going forward and a long HAPPY life. This stroke was a wake up ca ll..........change is hard but, you have made a good start. If you have any questions after you leave the hospital please feel free to call me. My office number is [phone] and my cell is [phone]. Discharge Orders/Prescriptions Prescriptions: New Arthritis Pain Compound 3 click topical TID Qty: 0 RF: 0 acetaminophen 500 mg Tablet 1,000 mg PO Q8H PRN PRN (Reason: Pain Score 1-10) Qty: 0 RF: 0 meloxicam 7.5 mg Tablet 7.5 mg PO DAILY Qty: 30 RF: 0 trazodone 100 mg Tablet 100 mg PO 2100 Qty: 30 RF: 0 duloxetine 60 mg Capsule,Delayed Release(Dr/Ec) 60 mg PO DAILY Qty: 30 RF: 0 Continued aspirin 81 mg Tablet,Chewable 81 mg PO DAILY RF: 0 nitroglycerin 0.4 mg Tablet, Sublingual 0.4 mg sublingual PRN PRN (Reason: Chest Pain) RF: 0 atorvastatin 40 mg tablet 40 mg PO QHS Qty: 3 RF: 0 carvedilol 12.5 mg tablet 12.5 mg PO BID Qty: 60 RF: 0 amlodipine 5 mg tablet 5 mg PO DAILY Qty: 30 RF: 0 spironolactone 25 mg tablet 12.5 mg PO DAILY Qty: 15 RF: 0 levothyroxine 100 mcg tablet 100 mcg PO DAILY Qty: 30 RF: 0 potassium chloride [Klor-Con M20] 20 mEq tablet,ER particles/crystals 10 meq PO BID Qty: 30 RF: 0 omeprazole 20 mg capsule,delayed release(DR/EC) 20 mg PO DAILY Qty: 30 RF: 0 allopurinol 300 mg tablet 300 mg PO DAILY Qty: 30 RF: 0 furosemide 20 mg tablet 20 mg PO BID Qty: 60 RF: 0 albuterol sulfate [ProAir HFA] 90 mcg/actuation Hfa Aerosol Inhaler 108 mcg INHALATION Q4H PRN PRN (Reason: SOB) Qty: 1 RF: 0 Discontinued naproxen sodium 375 mg PO/SL BID RF: 0 Referrals / Follow Up: Davey Sotelo MD [Primary Care Provider] - Disposition Disposition (needs filled in before D/C Order can be placed): Home, Self Care Charges/Coding Visit Charges Inpatient E&M: 88915 Disch Hosp
[2021-07-06 13:04] VITALS: BP 132/83; PULSE 76; RESP 16; TEMP 36.6; O2SAT 100
[2021-07-06 13:05] VITALS: BMI 39.6
--- NOTE | 2021-07-06 13:05 | NURSING ---
Discharged home with . Discharge instruction, medications and appointments reviewed with pt and . Denies questions or concerns
== END 2021-07-06 13:06 | disposition home or self-care (01) | DRG 57 ==
PROVIDERS: Admitting Provider Internal Medicine; PCP Family Medicine; Visit Provider Internal Medicine
DX: I69.354 Hemiplegia and hemiparesis following cerebral infarction affecting left non-dominant side (principal); C91.10 Chronic lymphocytic leukemia of B-cell type not having achieved remission; I69.322 Dysarthria following cerebral infarction; E66.01 Morbid (severe) obesity due to excess calories; G47.33 Obstructive sleep apnea (adult) (pediatric); K21.9 Gastro-esophageal reflux disease without esophagitis; I10 Essential (primary) hypertension; E78.5 Hyperlipidemia, unspecified; E03.9 Hypothyroidism, unspecified; F32.A Depression, unspecified; M65.4 Radial styloid tenosynovitis [de Quervain]; F41.0 Panic disorder [episodic paroxysmal anxiety]; F17.220 Nicotine dependence, chewing tobacco, uncomplicated; I25.10 Atherosclerotic heart disease of native coronary artery without angina pectoris; Z68.39 Body mass index [BMI] 39.0-39.9, adult; Z79.899 Other long term (current) drug therapy; Z79.82 Long term (current) use of aspirin
CPT/HCPCS: 36415; 80048; 80053; 82962; 83735; 84100; 84550; 85025; 85027; 92507; 92523; 93271; 97110; 97112; 97116; 97162; 97166; 97530; 97535; 97802; 97803

== ENCOUNTER 2021-11-01 14:30 | Outpatient (RCR) | payer OTHER, SELFPAY ==
--- NOTE | 2021-07-08 14:47 | HP.PTEVAL_ITS ---
Patient's Visit Information GEETA ORTIZ is a 61 year old M referred to Physical Therapy by Dr. Pratima Raymundo DO with a diagnosis of STROKE, DEBILITY AND L SIDE WEAKNESS. Date of Evaluation: 07/08/21 Physical Therapist: Muriel Kemp PT, Cert MDT - Visit Plan Frequency: 2-3x /Week Duration: 2 Months Plan: *H/O CHRONIC BACK PAIN*. GAIT AND BALANCE TRAINING. ENDURANCE TRAINING. TRUNK AND CHRISTAL LE ROM, STRETCHING AND STRENGTHEING. HEP INSTRUCTION. - Subjective PATIENTS PRESENT FOR EVALUATION. 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 WORK IS PHYSICAL AT TIMES. Disability: NO. Present symptoms: LEFT ARM AND LEFT WEAKNESS BUT ALSO SOME WEAKNESS ON THE RIGHT. UNSTEADY. INTERMITTENT LEFT WRIST PAIN AND SOME BACK PAIN. HAD BACK PAIN BEFORE THE STROKE TO. Present since: 06/16/21 IS WHEN SX'S STARTED BUT DID NOT SEEK HELP UNTIL GOING TO THE ED Monday06/19/21. WENT TO WORK ON MONDAY AND MONDAY. Pain Scale: BACK - WORST 6/10, LEAST 1/10. Currently: 09/27. Commenced as a result of: STATES HE STARTED HAVING A STROKE 06/16/21. BACK FX'S ABOUT 15 TO 20 YEARS AGO IN UPPER THORACIC SPINE. ALSO CHRONIC LOW BACK PAIN AFTER UPPER BACK FX'S. FX'S FROM OFF ROAD RACING. NO SPINE SURGERY. NO SIMA'S. NO CHIROPRACTIC. Symptoms at onset: REALLY AGGETATED AND WEAKNESS (TRYING TO LIFT SOMETHING IN HOME DEPOT). Gait: I HAVE TO THINK EVERY STEP. STATES HE HAS TO THINK ABOUT HIS BREATHING AND PICKING HIS LEFT FOOT UP. HAS BEEN USING A CANE FOR ABOUT A WEEK. Imaging: NONE RECENT. BRAIN MRI - STROKE IN SMALL BLOOD VESSELS AND WAS TOLD IT WAS PROBABLY STRESS RELATED. ALL OTHER TESTING NEGATIVE TO PATIENTS KNOWLEDGE. PMH/Recent major surgery: LUEKEMIA DX'D ABOUT 2 YEARS AGO - NOT GETTING ANY TREATMENT RIGHT NOW BUT STATES HE IS BEING MONITORED AND EVENTUALLY WILL PROBABLY NEED TREATMENT. 3 HEART CATHS - NO STENTS BUT DOES HAVE SOME BLOCKAGES. HTN. HIGH CHOLESTEROL. CHRISTAL KNEE SX'S. RIGHT SHLD INJURY. PLOF (Prior Level of Function): PATIENT REPORTS THAT BEFORE THE STROKE HE WAS FULLY FUNCTIONAL INCLUDING HEAVY LIFTING DESPINTE HIS BACK PAIN. OTHER: PATIENT REPORTS HIS BACK PAIN IS 85% BETTER SINCE SEEING DR. RAYMUNDO - PRESCRIBED PAIN MEDICINE AND CREAM. HISTORY: SQUAD FROM [place] TO [facility] FOR ONE WEEK. THEN [facility] X ABOUT 2 WEEKS. DISCHARGED HOME Monday07/06/21. OTHER: PATIENT REPORTS HE HAS PUT HIMSELF ON A STRICK DIET AND HAS LOST ABOUT 10 LBS. - Objective THIS PATIENT AMBULATES INDEP'LY INTO PT WITH A STRAIGHT CANE, DECREASED CADANCE, GOOD BALANCE AND GOOD SEQUENCING. HE IS ABLE TO TRANSFER INDEP'LY FROM SIT TO STAND WITHOUT UE ASSISTANCE. HE HAS DIFFICULTY INITIATING GAIT AFTER SITTING. TUG TIME OF 22 SEC TODAY. HE IS UNABLE TO SLS ON EITHER LE WITHOUT UE ASSIST. HE FATIGUES EASILY TODAY DURING EVAL EVEN JUST IN SITTING. HE RESTS HIS HEAD ON THE WALL OFF AND ON. HE FOLLOW ALL COMMANDS WELL AND IS PLEASANT AND COOPERATIVE TO WORK WITH. CORE STRENGTH IS POOR. RIGHT LE STRENGTH IS 5/5 WITH MMT'ING. LLE STRENGTH: HIP 4-/5, KNEE 4/5, ANKLE 4/5. HE HAS TIGHT CHRISTAL HIP FLEXORS, HS'S AND GASTROC SOLEUS COMPLEX'S. PATIENT IS A GOOD CANDIDATE FOR FORMAL PHYSICAL THERAPY AND HE IS WELL MOTIVATED TO GET STRONGER. HE REPORTS THAT FATIGUE IS ONE OF HIS BIGGEST PROBLEMS RIGHT NOW. HE REPORTS HE GETS TIRED JUST TYING TO PUT HIS SHOES AND SOCKS ON. - Balance/Special Test Scores Lower Extremity Functional Score: 21 - Goals Goal 1:: PATIENT WILL BE INDEP AND SAFE WITH GAIT ON LEVEL SURFACES AND UP AND DOWN STEPS WITH LEAST ASSISTIVE DEVICE. Goal Time Frame: 6-8 Weeks Goal 2:: INCREASE TUG TIME BY 5 SECONDS Goal Time Frame: 6-8 Weeks Goal 3:: IMPROVE LEFS BY 10 POINTS. Goal Time Frame: 6-8 Weeks Goal 4:: PATIENT WILL BE INDEP WITH A HEP FOR CONTINUED IMPROVEMENT ONCE FORMAL PHYSICAL THERAPY CONCLUDES. Goal Time Frame: 6-8 Weeks - Anticipated Interventions Patient/Client Instruction: Educate patient on: Condition, Plan of Care, Risk Factors For the Purpose of:: To improve self management Therapeutic Exercise to Include: Strength training, Endurance training, Balance training, Coordination, Body mechanics, Postural training, Flexibilty training, Gait and locomotor training, Neuromotor development For the Purpose of:: To increase ROM, To improve muscle performance and motor function, To increase tolerance to activity/condition/position, To improve ability of physical actions for home/community/work/leisure, To improve gait and locomotor functions Thank you for the opportunity to evaluate your patient. For Medicare and Medicare HMO plans, please review the plan of care and approve it. It will need to be FAXED BACK to us at [phone] for Medicare purposes. For Medicare only, by signing this I certify the plan of care. Please let me know if there are questions or concerns regarding this plan of care. Physician Signature: Date:
--- NOTE | 2021-07-12 12:34 | HP.OTEVAL ---
Patient's Visit Information GEETA ORTIZ is a 61 year old M, referred to Occupational Therapy by Dr. Davey Sotelo MD, with a diagnosis of s/p Stroke;. Date of Evaluation: 07/12/21 Occupational Therapist: Suma Rollins - Subjective Pt presents by himself today, amb. w/ use of a cane; Pt had a stroke on 06/16/21 affecting his L side; he was in rehab for 2 weeks after acute stay and was d/c'd on 07/06/21; He currently has a diagnosis of Leukemia (counts are stable) and is not receiving treatment at this time for it. 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); - ADLs Dressing: Pants, Socks Comments: shaving, getting dressed in general; Fasteners: Tie shoes, Zippers Toileting: Manage clothing Comments: pt reports that he is not able to stand and urinate Grooming: Shave Comments: does a lot of cooking but is going through medical difficulties Comments: does a lot Comments: pt did all maintenance and yardwork Miscellaneous: Use hand tools, Use power tools, Drive Comments: Pt reports general difficulty with all tasks ; getting fatigued quickly - Pain L hand/wrist 0 Pain Intensity Range: 5 - ROM Shoulder: R/L WFL Elbow: R/L WFL Forearm: R/L WFL Wrist: R/L WFL Opposition: 6 - Strength Shoulder: R 4/5 L 3+/5 Elbow: R 4/5 L 4-/5 Wrist: R 4-/5 L 4-/5 Sorting Machine Attendant: R 70 L 50 Lateral Pinch: R 17 L 12 Tripod Pinch: R 20 L 17 Tip-to-Tip Pinch: increased difficulty Strength Comments: Pt reports that he feels generalized decrease in strength - Sensation Sensation Comments: denies N/T - Visual/Perceptual Skills Comments: denies changes - Cognitive Skills Cognitive Comments: pt reports speech is slower and states he struggles to remember simple things (such as a song, a certain word, etc.) - Nine Hole Peg Right: 25.1 Left: 37.28 - In-Hand Manipulation Finger to Palm Translation: Normal - Right, Normal - Left Palm to Finger Translation: Normal - Right, Moderate - Left - Quick DASH-Disab of Arm,Shoulder& Hand Quick DASH Score: 65.9075 - Goals Goal:: Pt will demo improved L ux specialist strength to >60# and pinch strength equivalent to R side in order to complete prior functional tasks. Goal:: Pt will demo improve neuro coordination as shown by 9-hole peg test by L hand to <30 sec in order to resume prior functional tasks. Goal:: Pt will report an increased in ind./efficiency w/ ADL tasks including LB dressing and bathing tasks. Goal:: Pt will report increased independence with FM skills including opening a bottle of water, buttons, and tying shoes. Goal:: Pt will demo good understanding of HEP and education with ongoing suggestions made by therapist. 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 w/ ADLS/IADL tasks including driving, yard, and home maintenance; pt is currently functioning below baseline level and is demonstrating decreased strength, activity tolerance and ind. especially in LUE (pt is mostly R handed/slightly ambidextrous at baseline); Rehabilitation Potential: Good - Anticipated Interventions Strengthening, Joint Protection/Energy Conservation, Fine Motor Coord/John, Neuro Reeducation, ADL Training, Education re assistive Equipment, Home Program - Visit Plan Frequency: 2x /Week Duration: 2 Months General Plan: Pt will benefit from OT services 2x/week for 6-8 weeks to address strengthening, ADLs, activity tolerance, FM coordination and neuro-educations strategies in order to maximize ind. and resume daily activities. TEXT: Thank you for the opportunity to evaluate your patient. For Medicare and Medicare HMO plans, please review the plan of care and approve it. It will need to be FAXED BACK to us at [phone] for Medicare purposes. Please let me know if there are questions or concerns regarding this plan of care. Physician Signature: Date:
--- NOTE | 2021-08-09 13:38 | HP.PTREVAL ---
Dr. Davey Sotelo MD, It has been my pleasure to treat GEETA ORTIZ over the last 11 visits for STROKE, DEBILITY AND L SIDE WEAKNESS. Please see the progress note below for an update on the physical therapy plan of care! Subjective: PATIENT REPORTS THAT HE NOTICES WITH THE WEIGHTS HE CAN DO MORE AND MORE BUT MONDAY THE TENDON ON HIS RIGHT FOOT WAS PAINFUL COMING DOWN THE STEPS. STATES HE PUSHED THE THERAPIST TO LET HIM DO MORE LAST VISIT AND THINKS HE OVER DID IT. RIGHT ACHILLES PAIN IS GETTING BETTER BUT NOT GONE. STATES HIS IMPROVEMENT IS GETTING SLOWER. STATES HE ABSOLUTELY DOESN'T WANT TO QUIT HIS THERAPY. STATES HE IS HAPPY WITH HIS THERAPY BUT NOT HAPPY WITH WHERE HE IS AT. STATES HE STILL HAS TO REALLY THINK ABOUT EVERYTHING HE HAS TO DO. STATES TENTATIVE RETURN TO WORK DATE IS DECEMBER 15 2020. HAS HAD A FEW FALLS Jun AND ABOUT A WEEK LATER OUTSIDE ON [place] IN THE DARK WITHOUT INJURY. STATES HE HAS LOST BALANCE IN THE HOUSE TOO. Objective/Function: PATIENT WAS SEEN TODAY FOR RE-ASSESSMENT OF PROGRESS TOWARD THE SET PT GOALS AND THE NEED FOR FURTHER PHYSICAL THERAPY VS READINESS FOR DISCHARGE. PATIENT IS MAKING GOOD PROGRESS TOWARD ALL PT GOALS AND IS A GOOD CANDIDATE TO CONTINUE PT BASED ON PROGRESS MADE AND ROOM FOR FUTHER IMPROVEMENT. GAIT, BALANCE, STRENGTH AND ENDURANCE ARE IMPROVING AND PATIENT DID NOT SHOW ANY SIGNS OF FATIGUE WITH RE-EVAL TODAY. UPON EXAM TODAY: THIS PATIENT AMBULATES INDEP'LY INTO PT WITH A STRAIGHT CANE, DECREASED CADANCE, GOOD BALANCE AND GOOD SEQUENCING. HE IS ABLE TO TRANSFER INDEP'LY FROM SIT TO STAND WITHOUT UE ASSISTANCE. INITIATING GAIT AFTER SITTING HAS IMRPVOED. TUG TIME OF 10.86 SEC TODAY. HE IS NOW ABLE TO SLS X APPROX 8 SEC ON THE LLE AND 12 SEC ON THE RIGHT LE WITHOUT UE ASSIST. HE FOLLOW ALL COMMANDS WELL AND IS PLEASANT AND COOPERATIVE TO WORK WITH BUT EXPRESSING FRUSTRATION WITH LEVEL OF FATIGUE HE IS STILL DEALING WITH. CORE STRENGTH IS FAIR. RIGHT LE STRENGTH IS 5/5 WITH MMT'ING. LLE STRENGTH: HIP 4/5, KNEE 5/5, ANKLE 5/5. HE STILL HAS TIGHT CHRISTAL HIP FLEXORS, HS'S AND GASTROC SOLEUS COMPLEX'S. PATIENT IS A GOOD CANDIDATE FOR FORMAL PHYSICAL THERAPY AND HE IS WELL MOTIVATED TO GET CONTINUE TO TRY TO PROGRESS WITH THERAPY. Plan Plan: *USE GAIT BELT - STILL A FALL RISK*. Practice floor transfers with out UE assist next visit. *H/O CHRONIC BACK PAIN and Leukemia*. GAIT AND BALANCE TRAINING. ENDURANCE TRAINING. TRUNK AND CHRISTAL LE ROM, STRETCHING AND STRENGTHEING. HEP INSTRUCTION. Balance/Gait/Functional tests - Balance/Special Test Scores Lower Extremity Functional Score: 29 Goals Goal 1:: PATIENT WILL BE INDEP AND SAFE WITH GAIT ON LEVEL SURFACES AND UP AND DOWN STEPS WITH LEAST ASSISTIVE DEVICE. Goal Time Frame: 6-8 Weeks Goal 2:: INCREASE TUG TIME BY 5 SECONDS Goal Time Frame: 6-8 Weeks Goal 3:: IMPROVE LEFS BY 10 POINTS. Goal Time Frame: 6-8 Weeks Goal 4:: PATIENT WILL BE INDEP WITH A HEP FOR CONTINUED IMPROVEMENT ONCE FORMAL PHYSICAL THERAPY CONCLUDES. Goal Time Frame: 6-8 Weeks Anticipated Interventions Patient/Client Instruction: Educate patient on: Condition, Plan of Care, Risk Factors For the Purpose of:: To improve self management Therapeutic Exercise to Include: Strength training, Endurance training, Balance training, Coordination, Body mechanics, Postural training, Flexibilty training, Gait and locomotor training, Neuromotor development For the Purpose of:: To increase ROM, To improve muscle performance and motor function, To increase tolerance to activity/condition/position, To improve ability of physical actions for home/community/work/leisure, To improve gait and locomotor functions Please do not hesitate to contact me at [phone] by phone or if you have questions or concerns regarding this new plan of care! Sincerely, Muriel Kemp, PT, Cert MDT
--- NOTE | 2021-09-01 13:54 | HP.OTDCSUM_ITS ---
It has been my pleasure to treat GEETA ORTIZ under orders from Dr. Davey Sotelo MD, for the diagnosis of s/p Stroke; for a total of 14 visit(s). Please see the following information for a summary of their discharge status. % Improvement: 70 Objective/Function: right unhairing machine operator strength 23.67 sec a improvement from 25. sec left 9-hole peg 24.14 a improvement from 37.28. right unhairing machine operator strength 85# increase from 70# left unhairing machine operator strength 100# increase from 50#. right lateral pinch 17# no change. left lateral pinch 22# increase from 12#. right tripod pinch 20# no change. left tripod pinch 20# increase from 17#. MMT right 01/20 left 01/20 Patient Goals: Regain Strength, Return to Work, Improve Fine Motor Skills, Use Hand/Wrist/Arm Normally Again, Be More Independent in ADLS, Resume Former Household Responsibilities (Cooking,Cleaning,Yard, etc.), Resume Hobbies Goal:: Pt will demo improved L unhairing machine operator strength to >60# and pinch strength equivalent to R side in order to complete prior functional tasks. goal met Goal:: pt will demo the ability to lift 45# with simulated work lift 25X from different levels of lift floor, knee height, waist etc. to increase pts endurance and strength for work tasks. pt will demo the ability to work with BUE over head for 6 min as precursor for return to work tasks by d/c Goal:: Pt will demo improve neuro coordination as shown by 9-hole peg test by L hand to <30 sec in order to resume prior functional tasks. goal met Goal:: Pt will report an increased in ind./efficiency w/ ADL tasks including LB dressing and bathing tasks. Goal:: Pt will report increased independence with FM skills including opening a bottle of water, buttons, and tying shoes. Goal:: Pt will demo good understanding of HEP and education with ongoing suggestions made by therapist. Plan: pt has met OT goals and is D.c at this time Discharge Comments: pt has been seen 14 visits following a stroke - therapy challenged pt on strengthening UB - and fine motor - pt has made a increase in UE strength and has returned to his PLOF- pt was advised to continue with his PRE- or initiate a health and wellness membership-pt agrees to POC. pt agree to D/C If there are questions or concerns regarding this patient's occupational therapy, please fell free to call me at [phone]. Thank you for the r eferral of this patient. Sincerely, Brooke Renteria, OTR/L, CHT
--- NOTE | 2021-09-13 13:59 | HP.PTREVAL_ITS ---
Dr. Davey Gomez MD, It has been my pleasure to treat GEETA ORTIZ over the last 19 visits for STROKE, DEBILITY AND L SIDE WEAKNESS. Please see the progress note below for an update on the physical therapy plan of care! Subjective: PATIENT REPORTS EVERYTHING IS BETTER. REPORTS HE IS ONLY USING THE CANE ABOUT 50% OF THE TIME NOW. PATIENT REPORTS HE HAS HAD MORE IMPROVEMENT IN THE LAST TWO TO THREE WEEKS THAN HE HAS SINCE THE BEGINNING. REPORTS HIS PROGRESS IS FAST NOW. PATIENT REPORTS BEING ABLE TO DO ALL OF HIS NORMAL DAILY ACTIVITIES INDEP'LY NOW BUT IS STILL CAREFUL ON THE STEPS DUE TO FEAR OF FALLING. 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 STATES IT IS EASY TO GO UP THE STEPS. REPORTS HE HASN'T TRIED RUNNING. STATES HE FEELS LIKE THE CONNECTION BETWEEN HIS BRAIN AND HIS MUSCLES IS OPENING UP. 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 STATES HE DOESN'T KNOW WHEN HE IS GOING BACK TO WORK AND DOESN'T KNOW WHEN HIS FOLLOW UP IS WITH HIS PCP OR THE NEUROLOGIST. REPORTS WHEN HE SAW THE NEUROLOGIST HE PUT HIM ON MORE BLOOD THINNERS. NO OTHER MEDICATION CHANGES. STATES HE DIDN'T DISCUSS RETURN TO WORK WITH THE NEUROLO GIST. REPORTS HE HAD BLOODWORK DONE TWO WEEKS AGO AND HAD A FOLLOW UP WITH DR. GOMEZ 2 WEEKS AGO AND STATES THEY DIDN'T DISCUSS RETURN TO WORK EITHER. REPORTS HE WOULD REALLY LIKE TO WORK MORE ON HIS BALANCE AND HE ISN'T SURE HOW TO DO THAT ON HIS OWN AT HIS LOCAL GYM. Objective/Function: PATIENT WAS SEEN TODAY FOR RE-ASSESSMENT OF PROGRESS TOWARD THE SET PT GOALS AND THE NEED FOR FURTHER PHYSICAL THERAPY VS READINESS FOR DISCHARGE. PATIENT IS MAKING GOOD PROGRESS TOWARD ALL PT GOALS AND IS A GOOD CANDIDATE TO CONTINUE PT FOR IMBALANCE BASED ON PROGRESS MADE AND ROOM FOR FUTHER IMPROVEMENT WITH BALANCE. HE WOULD BENEFIT IN FURTHER PT TO GAIN CONFIDENCE IN HIS BALANCE AND TO BECOME INDEP AND SAFE WITH BALANCE ACTIVITIES ON HIS OWN AT THE GYM. WOULD ALSO BENEFIT FROM WORK SIMULATION ACTIVITES FOR TRAINING AND SAFETY. BALANCE, STRENGTH AND ENDURANCE ARE IMPROVING AND PATIENT DID NOT SHOW ANY SIGNS OF FATIGUE WITH RE-EVAL TODAY. GAIT CADANCE IS MUCH BETER. UPON EXAM TODAY: THIS PATIENT AMBULATES INDEP'LY INTO PT WITHOUT AN ASSISTIVE DEVICE AND NO LOSS OF BALANCE AND GOOD CADANCE. HE IS ABLE TO TRANSFER INDEP'LY FROM SIT TO STAND WITHOUT UE ASSISTANCE. NO DIFFICULTY INITIATING GAIT AFTER SITTING OBSERVED NOW. TUG TIME OF 7.72 SEC TODAY. HE IS NOW ABLE TO SLS X APPROX 20+ SEC ON THE LLE AND 20+ SEC ON THE RIGHT LE WITHOUT UE ASSIST. ABLE TO HEEL/TOE WALK BUT UNSTEADY. DYNAMIC BALANCE IS GOOD BUT PATIENT LACKS CONFIDENCE IN HIS BALANCE. HE FOLLOWS ALL COMMANDS WELL AND IS PLEASANT AND COOPERATIVE TO WORK WITH. CORE STRENGTH IS FAIR. CHRISTAL LE STRENGTH IS 5/5 WITH MMT'ING. HE STILL HAS MILD TIGHTNESS CHRISTAL HIP FLEXORS, HS'S AND GASTROC SOLEUS COMPLEX'S. PATIENT IS A GOOD CANDIDATE FOR FORMAL PHYSICAL THERAPY AND HE IS WELL MOTIVATED TO CONTINUE TO TRY TO PROGRESS WITH THERAPY. ABLE TO DO Fan carry: 45# in each hand 70 feet x6. ABLE TO DO A FULL SQUAT NOW AND RETURN TO STANDING WITHOUT EXTERNAL SUPPORT. Plan Plan: CONTINUE PT 2X'S A WEEK X 30 MIN X 3 WEEKS FOR FURTHER BALANCE TRAINING PATIENT TRANSISTIONS TO INDEP EX AT GYM OF HIS CHOICE AND FOR WORK SIMULATION TRAINING. Balance/Gait/Functional tests - Balance/Special Test Scores Lower Extremity Functional Score: 47 Goals Goal 1:: PATIENT WILL BE INDEP AND SAFE WITH GAIT ON LEVEL SURFACES AND UP AND DOWN STEPS WITH LEAST ASSISTIVE DEVICE. Goal Time Frame: 6-8 Weeks Goal Progress: Progressing Goal 2:: INCREASE TUG TIME BY 5 SECONDS Goal Time Frame: 6-8 Weeks Goal Progress: Progressing Goal 3:: IMPROVE LEFS BY 10 POINTS. Goal Time Frame: 6-8 Weeks Goal Progress: Progressing Goal 4:: PATIENT WILL BE INDEP WITH A HEP FOR CONTINUED IMPROVEMENT ONCE FORMAL PHYSICAL THERAPY CONCLUDES. Goal Time Frame: 6-8 Weeks Goal Progress: Progressing Anticipated Interventions Patient/Client Instruction: Educate patient on: Condition, Plan of Care, Risk Factors For the Purpose of:: To improve self management Therapeutic Exercise to Include: Strength training, Endurance training, Balance training, Coordination, Body mechanics, Postural training, Flexibilty training, Gait and locomotor training, Neuromotor development For the Purpose of:: To increase ROM, To improve muscle performance and motor function, To increase tolerance to activity/condition/position, To improve ability of physical actions for home/community/work/leisure, To improve gait and locomotor functions Please do not hesitate to contact me at [phone] by phone or Fax: if you have questions or concerns regarding this new plan of care! Sincerely, Muriel Kemp, PT, Cert MDT
--- NOTE | 2021-10-11 15:37 | HP.PTREVAL ---
Dr. Davey Sotelo MD, It has been my pleasure to treat GEETA ORTIZ over the last 23 visits for STROKE, DEBILITY AND L SIDE WEAKNESS. Please see the progress note below for an update on the physical therapy plan of care! Subjective: PATIENT REPORTS HE IS STILL STRUGGLING WITH HIS BALANCE. HE REPORTS HE REALLY ISN'T HAVING ANY ISSUES OTHER THAN HIS BALANCE. HASN'T BEEN BACK TO HIS LOCAL GYM SINCE GETTING COVID. PLANS TO RETURN THIS WEEK BECAUSE HE IS FFELING BETTER. 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 PATIENT REPORTS HE HASN'T IMPROVED MUCH COMPARED TO A MONTH AGO DUE TO COVID. Objective/Function: PATIENT WAS SEEN TODAY FOR RE-ASSESSMENT OF PROGRESS TOWARD THE SET PT GOALS AND THE NEED FOR FURTHER PHYSICAL THERAPY VS READINESS FOR DISCHARGE. PATIENTS PROGRESS WAS DISRUPTED DUE TO GETTING COVID. HE IS A GOOD CANDIDATE TO RESUME/CONTINUE PT FOR IMBALANCE BASED ON PROGRESS MADE AND ROOM FOR FUTHER IMPROVEMENT WITH BALANCE. HE WOULD BENEFIT IN FURTHER PT TO GAIN CONFIDENCE IN HIS BALANCE AND TO BECOME INDEP AND SAFE WITH BALANCE ACTIVITIES ON HIS OWN AT THE GYM. WOULD ALSO BENEFIT FROM WORK SIMULATION ACTIVITES FOR TRAINING AND SAFETY. BALANCE, STRENGTH AND ENDURANCE ARE IMPROVING AND PATIENT DID NOT SHOW ANY SIGNS OF FATIGUE WITH RE-EVAL TODAY. GAIT CADANCE IS MUCH BETER. UPON EXAM TODAY: THIS PATIENT AMBULATES INDEP'LY INTO PT WITHOUT AN ASSISTIVE DEVICE AND NO LOSS OF BALANCE AND GOOD CADANCE. HE IS ABLE TO TRANSFER INDEP'LY FROM SIT TO STAND WITHOUT UE ASSISTANCE. NO DIFFICULTY INITIATING GAIT AFTER SITTING OBSERVED NOW UNLESS PROLONGED SITTING. TUG TIME OF 6.56 SEC TODAY. HE IS NOW ABLE TO SLS X APPROX 20+ SEC ON THE LLE AND 20+ SEC ON THE RIGHT LE WITHOUT UE ASSIST. ABLE TO HEEL/TOE WALK BUT UNSTEADY. DYNAMIC BALANCE IS GOOD BUT PATIENT LACKS CONFIDENCE IN HIS BALANCE. HE FOLLOWS ALL COMMANDS WELL AND IS PLEASANT AND COOPERATIVE TO WORK WITH. CORE STRENGTH IS FAIR. CHRISTAL LE STRENGTH IS 5/5 WITH MMT'ING. HE STILL HAS MILD TIGHTNESS CHRISTAL HIP FLEXORS, HS'S AND GASTROC SOLEUS COMPLEX'S. PATIENT IS A GOOD CANDIDATE FOR FORMAL PHYSICAL THERAPY AND HE IS WELL MOTIVATED TO CONTINUE TO TRY TO PROGRESS WITH THERAPY. Plan Plan: CONTINUE PT 2X'S A WEEK X 30 MIN X 3 WEEKS FOR FURTHER BALANCE TRAINING PATIENT TRANSISTIONS TO INDEP EX AT GYM OF HIS CHOICE AND FOR WORK SIMULATION TRAINING. Balance/Gait/Functional tests - Balance/Special Test Scores Lower Extremity Functional Score: 47 Goals Goal 1:: PATIENT WILL BE INDEP AND SAFE WITH GAIT ON LEVEL SURFACES AND UP AND DOWN STEPS WITH LEAST ASSISTIVE DEVICE. Goal Time Frame: 6-8 Weeks Goal Progress: Progressing Goal 2:: INCREASE TUG TIME BY 5 SECONDS Goal Time Frame: 6-8 Weeks Goal Progress: Progressing Goal 3:: IMPROVE LEFS BY 10 POINTS. Goal Time Frame: 6-8 Weeks Goal Progress: Progressing Goal 4:: PATIENT WILL BE INDEP WITH A HEP FOR CONTINUED IMPROVEMENT ONCE FORMAL PHYSICAL THERAPY CONCLUDES. Goal Time Frame: 6-8 Weeks Goal Progress: Progressing Anticipated Interventions Patient/Client Instruction: Educate patient on: Condition, Plan of Care, Risk Factors For the Purpose of:: To improve self management Therapeutic Exercise to Include: Strength training, Endurance training, Balance training, Coordination, Body mechanics, Postural training, Flexibilty training, Gait and locomotor training, Neuromotor development For the Purpose of:: To increase ROM, To improve muscle performance and motor function, To increase tolerance to activity/condition/position, To improve ability of physical actions for home/community/work/leisure, To improve gait and locomotor functions Please do not hesitate to contact me at [phone] by phone or if you have questions or concerns regarding this new plan of care! Sincerely, Muriel Kemp, PT, Cert MDT
--- NOTE | 2021-11-01 15:01 | HP.PTDCSUM_ITS ---
It has been my pleasure to treat GEETA ORTIZ referred by Dr. Davey Gomez MD, with the diagnosis of STROKE, DEBILITY AND L SIDE WEAKNESS for a total of 28 visit(s). Discharge Date: Please see the following information for a summary of their discharge status. Subjective: PATIENT REPORTS THE ONLY THING HE NOTICES IS THAT HE IS STILL A LITTLE CLUMSY BUT IT IS AMAZING HOW FAR I'VE COME. HE REPORTS HE FEELS LIKE HE HAS GOT MOST OF HIS COORDINATION BACK BUT HE STILL GETS TIRED EASILY. REPORTS SEEING DR. GOMEZ LAST WEEK AND HE THINKS HE IS DOING OK FAR THE STROKE. EVI'T WITH NEUROLOGIST PENDING. PATIENT REPORTS HE HAS DECIDED HE IS NOT GOING TO GO BACK TO WORK. HE REPORTS HE HAS HAD TOO MANY HEALTH ISSUES AND HE WANTS TO STOP WORKING AT THIS POINT. HE REPROTS HE HAS A GYM MEMBERSHIP NOW AND HIS SON GOES WITH HIM. 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 STATES HE FEELS READY TO BE DISCHARGED AND PLANS TO GO TO THE GYM 3 TIMES A WEEK. PATIENT REPORTS HE HAS STONE WORK HE WANTS TO DO ON HIS HOUSE AND HE FEELS LIKE HE CAN DO THAT NOW IF HE TAKES HIS TIME. LOW BACK Pain Intensity (Out of 10): 0 % Improvement: 85 Objective/Function: PATIENT WAS SEEN TODAY FOR RE-ASSESSMENT OF PROGRESS TOWARD THE SET PT GOALS AND THE NEED FOR FURTHER PHYSICAL THERAPY VS READINESS FOR DISCHARGE. ALL GOALS HAVE BEEN MET. PATIENT IS INDEP WITH A GYM EX PROGRAM AND APPROPRIATE FOR D/C. UPON EXAM TODAY: THIS PATIENT AMBULATES INDEP'LY INTO PT WITHOUT AN ASSISTIVE DEVICE AND NO LOSS OF BALANCE AND GOOD CADANCE. HE IS ABLE TO TRANSFER INDEP'LY FROM SIT TO STAND WITHOUT UE ASSISTANCE. NO DIFFICULTY INITIATING GAIT AFTER SITTING OBSERVED NOW. TUG TIME OF 5.77 SEC TODAY. HE IS ABLE TO SLS X APPROX 20+ SEC ON CHRISTAL LE'S.WITHOUT UE ASSIST. ABLE TO HEEL/TOE WALK EASILY NOW WITHOUT LOB. DYNAMIC BALANCE IS GOOD BUT PATIENT L ACKS CONFIDENCE IN HIS BALANCE. HE FOLLOWS ALL COMMANDS WELL AND IS PLEASANT AND COOPERATIVE TO WORK WITH. CORE STRENGTH IS FAIR. CHRISTAL LE STRENGTH IS 5/5 WITH MMT'ING. HE STILL HAS MILD TIGHTNESS CHRISTAL HIP FLEXORS, HS'S AND GASTROC SOLEUS COMPLEX'S. PATIENT IS APPROPRIATE FOR DISCHARGE AT THIS TIME TO [facility] AND HE IS AGREEABLE. Goal 1:: PATIENT WILL BE INDEP AND SAFE WITH GAIT ON LEVEL SURFACES AND UP AND DOWN STEPS WITH LEAST ASSISTIVE DEVICE. Goal Progress: Goal Met Goal 2:: INCREASE TUG TIME BY 5 SECONDS Goal Progress: Goal Met Goal 3:: IMPROVE LEFS BY 10 POINTS. Goal Progress: Progressing Goal 4:: PATIENT WILL BE INDEP WITH A HEP FOR CONTINUED IMPROVEMENT ONCE FORMAL PHYSICAL THERAPY CONCLUDES. Goal Progress: Goal Met Plan: D/C. PATIENT IS AGREEABLE. If there are questions or concerns regarding this patient's physical therapy, please feel free to call me at [phone]. Thank you for the referral of this patient. Sincerely, Muriel Kemp, PT, Cert MDT Balance/Gait/Functional tests - Balance/Special Test Scores Lower Extremity Functional Score: 52
== END 2021-11-01 19:00 | disposition home or self-care (01) ==
LOC: PT 14:30
PROVIDERS: PCP Family Medicine; Referring Provider Internal Medicine; Visit Provider Family Medicine
DX: R53.81 Other malaise (principal); M62.81 Muscle weakness (generalized); Z86.73 Personal history of transient ischemic attack (TIA), and cerebral infarction without residual deficits
CPT/HCPCS: 97110; 97162; 97164; 97165; 97530